=== PATIENT | male | born 1950 | race Caucasian/White ===

== ENCOUNTER 2017-05-25 13:21 | Inpatient (IN) | payer MEDICARE, BC ==
[2017-05-25 13:55] LABS: #Eosinphils 0.1 thou/uL (0.0-0.7); #Lymphocytes 1.5 thou/uL (1.20-3.40); #Monocytes 0.5 thou/uL (0.11-0.59); #Neutrophils 3.9 thou/uL (1.40-6.50); %Basophils 0.6 % (0.0-1.0); %Lymphocytes 24.9 % (21.0-51.0); %Monocytes 8.5 % (0.0-10.0); Hematocrit 47.4 % (42.0-52.0); Mean Platelet Volume 7.4 fL (7.4-10.4); Red Blood Cell (RBC) Count 4.98 mill/uL (4.70-6.10); White Blood Cell (WBC) Count 6.1 thou/uL (4.8-10.8)
[2017-05-25] MEDS ORDERED: Ondansetron HCl/PF 4 MG/2 ML Vial IVP PRN ×2 (14:00→16:58)
[2017-05-25] MEDS ORDERED: Ondansetron ODT 4 MG TAB SL PRN (14:00)
[2017-05-25 14:03] LABS: Prothrombin Time 13.3 SEC (12.0-14.7)
[2017-05-25 14:18] LABS: ALT (SGPT) 27 U/L (8-55); AST (SGOT) 26 U/L (5-34); Alkaline Phosphatase 66 U/L (40-150); Anion Gap 13 mmol/L (10-20); BUN (Urea Nitrogen) 14 mg/dL (8.4-25.7); Bilirubin, Total 0.4 mg/dL (0.2-1.2); CK (CPK) 91 U/L (30-200); Calc. Creatinine Clearance 0 mL/min (70-130); Calcium 9.7 mg/dL (7.8-10.44); Carbon Dioxide 27 mmol/L (23-31); Chloride 100 mmol/L (98-107); Estimated GFR-MDRD 44; Globulin 3.2 g/dL (2.4-3.5); Lipase 78 U/L (8-78)
[2017-05-25 14:22] LABS: Troponin I Less than 0.010 ng/mL (< 0.028)
--- NOTE | 2017-05-25 14:31 | RAD ---
PORTABLE CHEST: History: Chest pain. FINDINGS: Heart size is enlarged. Mediastinal structures appear unremarkable. The lungs are clear of infiltrat es. There are no signs of failure. IMPRESSION: Cardiomegaly. POS: [facility]
[2017-05-25 16:39] LABS: Prothrombin Time 14.3 SEC (12.0-14.7)
[2017-05-25 16:41] LABS: PTT 103.8 SEC (22.9-36.1)
[2017-05-25] MEDS ORDERED: Acetaminophen 325 MG TAB PO PRN (16:58)
[2017-05-25] MEDS ORDERED: Ondansetron ODT 4 MG TAB PO PRN (16:58)
[2017-05-25] MEDS ORDERED: Bisacodyl 5 MG TAB PO PRN (16:58)
[2017-05-25] MEDS ORDERED: Dextrose 5% in Water 1,000 ML IV PRN (16:58)
[2017-05-25] MEDS ORDERED: Dextrose 50% Abboject 50 ML SYRINGE SLOW IVP PRN (16:58)
--- NOTE | 2017-05-25 18:00 | HP ---
PRIMARY CARE PHYSICIAN: Dr. Jose Carlos Rand in [place]. CHIEF COMPLAINT: Blood clot in heart and left flank pain. HISTORY OF PRESENT ILLNESS: This is a 66-year-old white male with past medical history significant for diabetes mellitus controlled with oral hypoglycemics and coronary artery disease with previous s tent as well as Crohn's disease, who was visiting [place] a couple of weeks ago while he was there, he stopped his Invokana diabetes medication. While he was helping his son do some farming, he fell and hit his anterior chest fairly hard to where the next day, he thought he might have cracked rib and was very sore over the anterior left chest. The patient reports that about a week ago, he start ed feeling bad. He started feeling very dehydrated and he tried to drink a lot of water, but he did seem like he could not drink enough to stay well hydrated. He traveled back to [facility] over the weekend and then Wednesday when he woke up, he noted that he had left flank pain. Pain wa s fairly severe, although the intensity would come and go depending on which way he laid. He also h ad some nausea and vomiting and just generalized fatigue and feeling bad. He was concerned about th e possibly of recurrent Crohn's and so he first went to an Urgent Care, where he was noted to have a little bit of blood in his urine. He then followed up with Dr. Barajas, the sparmaker who or carlos a CT scan to make sure, he did not have diverticulitis or evidence of complication of Crohn's di sease. The patient was called by Dr. Barajas's office when they noted that the CT scan went up high en ough to note a large blood clot in the left ventricle of his heart. They also noted what appeared t o be a fairly large infarct in his left kidney. The patient was told to go to the emergency room, a nd so he came here to be evaluated. In the emergency room, Dr. Wu was consulted by the ER virii irena and the patient was given a heparin bolus and then put on the heparin drip. He does not have sig nificant amount of pain right now, unless he rolls the wrong way in the bed and he reports no other associated symptoms at this time. PAST MEDICAL HISTORY: 1. Hypertension. 2. Diabetes mellitus, noninsulin-dependent. 3. Coronary artery disease, status post stent. 4. Crohn's disease without flare for the past 2 years since he retired. 5. Right pelvic kidney. PAST SURGICAL HISTORY: 1. Right elbow fracture and surgical repair. 2. Rectal fistula repair. 3. Tonsillectomy. SOCIAL HISTORY: Patient lives with his . He does not smoke or use tobacco products. He does n ot do drugs. He drinks wine cooler about once every 2 weeks. He is retired. FAMILY HISTORY: Dad had hypertension and of a myocardial infarction at age 53. His mom w hen she was older of an unusual cancer of the blood vessels in her scalp. ALLERGIES: No known drug allergies. MEDICATIONS: The patient does not have current medications list with him and he is uncertain of the dosages. 1. Losartan once a day. 2. Metoprolol 2 times a day, very small dose. 3. Unknown blood pressure medication. 4. Glimepiride. 5. Invokana, which he stopped 2 weeks ago about the time he started feeling sick. 6. Januvia. 7. Aspirin 81 mg daily. REVIEW OF SYSTEMS: Constitutional: No fevers, no chills. He has had about a 5-pound weight loss o george the last week and a half. Eyes: No double vision or blurred vision. ENT: He does have some c hronic congestion and runny nose, but nothing does significantly different over the last couple of w eeks. No sore throat. Cardiovascular: See HPI. No current chest pain, no palpitations or racing heart. Pulmonary: No coughing, wheezing, or shortness of breath. Gastrointestinal: He has the fl ank pain as per HPI. No other abdominal pain, no nausea or vomiting currently. He did have some ea rlier the week. No diarrhea or constipation. Genitourinary: No dysuria or visible hematuria. Mus culoskeletal: No muscle aches or joint pains. Skin: No rashes or other lesions noted. Neurologic : No numbness, tingling, or focal weakness. PHYSICAL EXAMINATION: VITAL SIGNS: Blood pressure 156/93, pulse 70, respirations 17, O2 sat 97% on room air, temperature 97.9. GENERAL: This is a well-developed, obese white male in no apparent distress. HEENT: Pupils equal, round, and reactive to light. Extraocular movements intact. Oropharynx clear without lesions, erythema, or exudate. NECK: Supple, no lymphadenopathy, no thyroid nodules or enlargement, no JVD. HEART: Regular rate and rhythm. No murmurs, rubs, or gallops. LUNGS: Clear to auscultation bilaterally. No wheezes, crackles, or rhonchi. ABDOMEN: Soft. Mild tenderness to palpation in the left lower quadrant and in the left flank, but without guarding. No hepatosplenomegaly, no masses. Normoactive bowel sounds. EXTREMITIES: No clubbing, cyanosis, or edema. SKIN: No rashes or other lesions noted. NEUROLOGIC: Cranial nerves intact and equal bilaterally. No facial droop. Deep tendon reflexes 2+ in all extremities. His strength is 5/5 in all extremities. LABORATORY DATA: CBC within normal limits. Coagulation profile normal. Complete metabolic panel w as only notable for creatinine of 1.57, which is elevated above 1.45 that he had about 6 months ago. His glucose was also elevated at 341. Cardiac marker set negative x1. Brain natriuretic peptide is normal. EKG: The patient's EKG in the emergency room showed normal sinus rhythm at 65 beats per minute with no significant abnormalities. Chest x-ray: I do review the chest x-ray done in the emergency room along with the radiologist's re port, it shows a normal chest film without any acute cardiopulmonary process. CT scan was done at an outside facility, I do not have a formal report at this time. ASSESSMENT: 1. Left ventricular clot, uncertain etiology, although it may be related to poorly controlled diabe amparo leading to dehydration, also may be related to the chest trauma he had, although it sounds like it was fairly mild couple of weeks ago. The patient does have a cardiac history, so possibly he has had a sudden myocardial infarction or he is having some sort of congestive heart failure that led t o this. Echocardiogram has been done in the emergency room waiting for the results on that. Right now, his brain natriuretic peptide is normal. For now, we will put patient on the heparin drip. Dr Cheyenne Wu has been consulted for Cardiology. 2. Kidney infarct likely secondary to #1. I have talked to Dr. Moyer and he will evaluate the patien t. We will avoid nephrotoxic medications. We will hold patient's ARB for right now. 3. Hypertension, currently uncontrolled. We will resume patient's metoprolol 25 mg twice a day unt il we get his home medicine list and will give p.r.n. medicines for severe elevations. 4. Gastrointestinal prophylaxis. Put the patient on Pepcid twice a day. 5. Deep venous thrombosis prophylaxis. Patient is already on heparin and will put sequential compr ession devices and TEDs while in bed. 6. Code status: I did discuss with the patient, he is a FULL CODE. Should he be incapacitated, hi s Annita Avalos would be his medical decision maker. 7. Diabetes mellitus type 2. We will put patient on insulin sliding scale and we will resume diabe amparo medications, mostly final and give an accurate list.
[2017-05-25] MEDS: HumaLOG 300 UNITS/3 ML VIAL SC PRN ×2 (18:08→20:38)
[2017-05-25] MEDS: Sodium Chloride 0.9% 1,000 ML IV SCH ×2 (18:08→20:37)
[2017-05-25] MEDS ORDERED: FLU VACC TS2017-18 (>65YR) 0.5 ML SYRINGE IM ONE (18:15)
--- NOTE | 2017-05-25 19:02 | CON ---
DATE OF CONSULTATION: 05/25/2017 HISTORY OF PRESENT ILLNESS: Mr. Avalos is a 66-year-old white male who was admitted for a left kidney infarct. The patient was being evaluated by GI for abdominal pain. A CT scan of the abdomen showe d left infarct. During the initial workup, he had a cardiac echo which showed thrombus in the heart . The feeling is that the renal infarct may be embolic in phenomenon. We are now being consulted f or further management. REVIEW OF SYSTEMS: Positive for left abdominal pain. No nausea, no vomiting, no diarrhea, no const ipation, no syncopal episode, no headache, no diplopia, no hematochezia, no gross hematuria. No dys uria, no urinary frequency. No hemoptysis, no headache, no fever or chills. Appetite and energy le parveen is fair. MEDICATIONS: Currently the patient is on an IV heparin drip. HOME MEDICATIONS: Currently unavailable. PAST MEDICAL HISTORY: Crohn's disease, coronary artery disease, status post MO, Type 2 diabetes roslyn litus. PAST SURGICAL HISTORY: Status post cardiac catheterization, status post coronary stent placement, s tatus post colonoscopy, status post upper GI endoscopy, status post right elbow surgery. SOCIAL HISTORY: Originally from [place], but currently lives in [place] for the last 2 years, , 2 children, retired computer network and systems engineer. No history of smoking. No alcohol intake. No drug abus e. Denies any blood transfusion. FAMILY HISTORY: No family history of ESRD. ALLERGIES: None. TRAUMA: Status post right elbow fracture. IMMUNIZATIONS: Up to date. HOSPITALIZATIONS: Please see past medical history. PHYSICAL EXAMINATION: VITAL SIGNS: Blood pressure is 130/70, heart rate 60, respiratory rate 12. GENERAL: Awake, alert, comfortable, supine, obese, not in distress. SKIN: Adequate turgor. HEENT: He has pinkish conjunctivae, anicteric sclerae. NECK: No neck mass, no carotid bruits, no JVD. CHEST: No deformities. LUNGS: Clear breath sounds. No wheezing, no crackles. HEART: Normal sinus rhythm. No murmur, no gallops, no rubs. ABDOMEN: Globular, soft, nontender, no masses. Positive for bowel sounds. EXTREMITIES: No edema, no deformities. NEUROLOGIC: Moving all extremities. No tremors, no asterixis, no ataxia. LABORATORY: Of 05/25/2017, sodium 136, potassium 4.2, chloride 100, carbon dioxide 27, BUN 14, crea tinine 1.57, glucose 341, calcium 9.7, AST 26, ALT 27, albumin 3.8, lipase 78, troponin I 0.010. On 11/30/2016 BUN 19, creatinine 1.45. CT scan of the abdomen - verbal report, left renal infarct. On 05/25/2017, chest x-ray shows cardiomegaly, no evidence of CHF. On 05/25/2017, cardiac echo EF shows 50-55%. There is a 1 x 2 cm thrombus seen in the left ventricu lar apex adjacent to septum, this was said to be well circumscribed and nonmobile. ASSESSMENT AND PLAN: 1. Left renal infarct - with a history of cardiac thrombus, consider the possibility of an embolic phenomenon leading to his left renal infarct. I agree with intravenous anticoagulation with heparin . Thrombosis panel has also been ordered. We need to make sure that this patient is not hypercoagu lable. 2. Chronic renal failure - the patient has underlying diabetes. He may be having secondary diabeti c nephropathy. Sometimes an acute renal infarct can aggravate the renal function. The plan is simp ly to observe him. Volume repletion as needed. Recheck basic metabolic and complete blood count in a.m. Overall, I agree with current management.
[2017-05-25] MEDS: Metoprolol Tartrate 25 MG TAB PO SCH (20:35)
[2017-05-25] MEDS: Famotidine 20 MG TAB PO SCH (20:35)
[2017-05-25] MEDS: Docusate 100 MG CAP PO SCH (20:37)
[2017-05-26] MEDS: Heparin 10,000 UNITS/ 10 ML VIAL SLOW IVP SCH ×2 (00:14→08:07)
--- NOTE | 2017-05-26 01:32 | CON ---
DATE OF CONSULTATION: 05/25/2017 REASON FOR CONSULTATION: Incidentally noted left ventricular thrombus. PRIMARY PUBLIC SERVICE REPRESENTATIVE: Jamaal Yang M.D. REFERRING PHYSICIAN: Dr. Acevedo in the Emergency Department. HISTORY OF PRESENT ILLNESS: Mr. Avalos is a 66-year-old gentleman followed by Dr. Jamaal lugo. He established care with him back in December and was due for a followup appointment next month . He has known coronary artery disease and underwent percutaneous coronary intervention and stentin g of the LAD after a non-ST segment elevation NV back in 2014. He has been stable clinically and do ing fine with no cardiovascular symptoms. He was visiting his family in [place] and reports a shor t fall while helping his son fix a toilet in his home. He began having some left-sided flank pain t hat he thought was either a pulled muscle or injured rib from that fall and the pain continued to pe rsist, prompting evaluation in Urgent Care Center. The Urgent Care Center ordered a CT scan, which incidentally found the thrombus in the renal artery and further evaluation examining the heart showe d potential evidence of a left ventricular thrombus. He has had no chest pain symptoms. No palpitations, syncope, near syncope, claudication or other is sues suggestive of angina or decompensated congestive heart failure. He has had no change in his me dications or changes that would increase his propensity for coagulation. PAST MEDICAL HISTORY: 1. Coronary artery disease with history of PCI to the LAD in 2014. 2. Crohn's disease. 3. Dyslipidemia. 4. Hypertension. 5. Positive for type 2 diabetes mellitus. PAST SURGICAL HISTORY: 1. Percutaneous coronary intervention and stenting of the LAD in 2014. 2. Colonoscopy. 3. Right elbow surgery. 4. Rectal fistula surgery. 5. Tonsillectomy. ALLERGIES: No known drug allergies. SOCIAL HISTORY: He denies tobacco use, ethanol abuse, illicit or recreational drug use. FAMILY HISTORY: Negative with respect to premature atherosclerosis. CURRENT MEDICATIONS AT HOME: Include: 1. Metoprolol. 2. Lipitor. 3. Aspirin. 4. Cozaar. 5. Glimepiride. REVIEW OF SYSTEMS: Positive for left flank pain. Otherwise, negative with the exception of what is mentioned in the HPI. PHYSICAL EXAMINATION: VITAL SIGNS: Blood pressure is 132/68, pulse 68 and regular, respiratory rate 14 and nonlabored, te mperature 98.8, oxygen saturation 98% on room air. GENERAL: This is a well-developed, well-nourished 66-year-old gentleman in no acute distr ess. He is alert and oriented x4, answers questions appropriately. HEENT: Head is atraumatic, normocephalic. Pupils were equally round and reactive, sclerae and conj unctivae are clear. There are no oral lesions. NECK: Supple, no JVD, thyromegaly, carotid bruits. CHEST: Symmetrical inspiration and expiration. HEART: Regular rate and rhythm. No murmur, S3, S4. PMI is nondisplaced, not enlarged. LUNGS: Clear to auscultation in all curiel. No adventitious sounds appreciated. ABDOMEN: Soft, nontender, nondistended, without mass or organomegaly. Bowel sounds are present in all 4 quadrants. No flank bruits auscultated. EXTREMITIES: 2+ pulses noted bilaterally. Upper and lower extremity strength 5/5 bilaterally. The re is no clubbing, cyanosis or edema. NEUROLOGIC: Grossly intact with no focal motor deficits appreciated. DATABASE: EKG reveals sinus mechanism with nonspecific ST changes. LABORATORY DATA: CBC reveals a white count of 6, H and H of 15 and 47, platelet count 258,000. Dif ferential white blood cells normal. Red cell indices normocytic. Coagulation studies: PT and INR are normal. PTT 103 on heparin with a D-dimer of 1.09. Chemistries reveal normal electrolytes, BUN and creatinine 14 and 1.5. GFR is estimated at 44, glucose 341. LFTs are normal. Serial cardiac enzymes are normal. Homocystine is normal. Echo shows low normal LV function with ejection fraction of 50% to 55%. There is a well circumscrib ed stable appearing left ventricular thrombus in the apex of the left ventricle adjacent to the sept um, this is nonmobile and well circumscribed. ASSESSMENT: 1. Left renal arterial thrombus. 2. Left ventricular mural thrombus, new diagnosis. 3. Chronic kidney disease stage III. 4. Type 2 diabetes mellitus. 5. Coronary artery disease with history of percutaneous coronary intervention of the left anterior descending, stable. 6. Hypertension, controlled. 7. Dyslipidemia, on therapy. RECOMMENDATIONS: 1. From a cardiac standpoint, he is stable. There is no evidence of recent myocardial infarction, wall motion abnormality or recent myocardial injury that would explain the development of this throm bus. Hypercoagulability evaluation has been sent prior to initiation of anticoagulation therapy. W e will continue the IV heparin protocol using weight based protocol overnight with initiation of ora l therapy using Xarelto b.i.d. for the prescribed period of time followed by titration downward to d aily dosing thereafter. 2. He will be monitored in the IMCU for evidence of recurrent embolization as anticoagulation has b een initiated. Dr. Yang, his primary apple checker has been notified and he will assume care michael rogers. I appreciate the opportunity to participate. We will follow along.
[2017-05-26 05:20] LABS: #Eosinphils 0.2 thou/uL (0.0-0.7); #Lymphocytes 2.2 thou/uL (1.20-3.40); #Monocytes 0.6 thou/uL (0.11-0.59); #Neutrophils 2.8 thou/uL (1.40-6.50); %Basophils 0.6 % (0.0-1.0); %Eosinophils 3.6 % (0.0-10.0); %Lymphocytes 36.9 % (21.0-51.0); Hematocrit 43.9 % (42.0-52.0); Mean Platelet Volume 7.6 fL (7.4-10.4); Red Blood Cell (RBC) Count 4.59 mill/uL (4.70-6.10); White Blood Cell (WBC) Count 5.9 thou/uL (4.8-10.8)
[2017-05-26 05:35] LABS: Anion Gap 13 mmol/L (10-20); BUN (Urea Nitrogen) 13 mg/dL (8.4-25.7); Calc. Creatinine Clearance 82 mL/min (70-130); Calcium 8.7 mg/dL (7.8-10.44); Carbon Dioxide 22 mmol/L (23-31); Chloride 106 mmol/L (98-107); Estimated GFR-MDRD 61
[2017-05-26] MEDS: HumaLOG 300 UNITS/3 ML VIAL SC PRN ×3 (06:13→20:59)
[2017-05-26] MEDS ORDERED: Warfarin Sodium 5 MG TAB PO SCH (07:00)
[2017-05-26] MEDS: Metoprolol Tartrate 25 MG TAB PO SCH ×2 (07:46→20:55)
[2017-05-26] MEDS: Famotidine 20 MG TAB PO SCH ×2 (07:46→20:56)
[2017-05-26] MEDS: Docusate 100 MG CAP PO SCH ×2 (07:46→20:56)
--- NOTE | 2017-05-26 08:27 | PDOC.PN ---
- Subjective Encounter Start Date: 05/26/17 Encounter Start Time: 10:00 Subjective: No chest pain. Left flank pain almost gone. No other complaint. - Objective Resuscitation Status: Resuscitation Status FULL:Full Resuscitation MAR Reviewed: Yes Vital Signs & Weight: Vital Signs (12 hours) Temp Pulse Resp BP Pulse Ox 05/26/17 08:00 98.3 F 52 L 17 96 05/26/17 07:17 98.3 F 52 L 17 126/67 96 05/26/17 03:03 98.7 F 71 16 115/63 100 05/25/17 23:03 98.1 F 57 L 16 110/68 98 Weight Weight 211 lb 10.24 oz I&O: 05/25/17 05/26/17 05/27/17 06:59 06:59 06:59 Intake Total 1500 Output Total 1520 Balance -20 Result Diagrams: 05/26/17 03:52 05/26/17 03:52 Additional Labs: Accuchecks 05/26/17 05/25/17 05/25/17 05:13 20:06 17:59 POC Glucose 205 H 212 H 247 H Phys Exam - Physical Examination Constitutional: NAD HEENT: moist MMs Respiratory: no wheezing, no rales, no rhonchi Cardiovascular: RRR, no significant murmur Gastrointestinal: soft, positive bowel sounds Musculoskeletal: no edema Neurological: non-focal, moves all 4 limbs Psychiatric: normal affect, A&O x 3 Dx/Plan (1) Left ventricular thrombus Code(s): XVT5872 - Status: Acute (2) Renal infarct Code(s): N28.0 - ISCHEMIA AND INFARCTION OF KIDNEY Status: Acute Comment: creatinine normalized with IV fluids and heparin (3) Diabetes mellitus type 2 in obese Code(s): E11.69 - TYPE 2 DIABETES MELLITUS WITH OTHER SPECIFIED COMPLICATION; E66.9 - OBESITY, UNSPECIFIED Status: Chronic (4) Hypertension Code(s): I10 - ESSENTIAL (PRIMARY) HYPERTENSION Status: Chronic - Plan cont current plan of care, out of bed/ambulate, DVT proph w/heparin transition to oral anticoagulants- Coumadin due to ability to reverse -: and cost. * . - Discharge Day Encounter end time: 10:30
--- NOTE | 2017-05-26 10:21 | PRG ---
DATE OF SERVICE: 05/26/2017 SUBJECTIVE: Mr. Avalos is a 68-year-old white male who was seen for left renal infarct. He was having flank pain for the last several weeks. CT scan of the abdomen was done by his therapeutic mentor an raad an incidental finding of a left renal infarct was done. He was admitted for IV anticoagulation. Chidi miranda is currently on IV heparin. An anti-thrombosis panel has also been ordered. His renal function, h is last creatinine was noted at 1.59. His medications have been adjusted. In addition, he was start ed on gentle volume repletion. Creatinine is now much improved to a most recent value of about 1.1. The patient denies any chest pain, shortness of breath. PHYSICAL EXAMINATION: VITAL SIGNS: Blood pressure is 126/67, heart rate 60, respiratory rate 12, pulse ox 95%. GENERAL: Noted to be awake, supine, comfortable, not in distress. SKIN: Adequate turgor. HEENT: Pinkish conjunctivae, anicteric sclerae. NECK: No neck mass, no carotid bruits, no JVD. CHEST: No deformities. LUNGS: Clear breath sounds. No wheezing, no crackles. HEART: Normal sinus rhythm. No murmur, no gallops or rubs. ABDOMEN: Globular, soft, nontender, no masses. EXTREMITIES: No edema, no deformities. MEDICATIONS: 05/26/2017 - Reviewed. LABORATORIES: 05/26/2017 - Reviewed. ASSESSMENT AND PLAN: 1. Acute kidney injury on top of his chronic renal failure ? - improved creatinine with gentle volum e repletion. Continue current management. There is no indication for any dialytic intervention. 2. Left renal infarct - most likely embolic phenomenon. An anti-thrombosis panel has been ordered. We are awaiting for the results. I agree with IV heparin. The patient will be converted to Coumadi n. Overall, I agree with current management. Case discussed at length with the patient and his .
--- NOTE | 2017-05-26 10:21 | CON ---
DATE OF CONSULTATION: 05/26/2017 HISTORY: Mr. Avalos is a 66-year-old gentleman who is from the [place] area, he sees Dr. Barajas and Dr. Yang over here. He has an unusual history of 2 weeks ago he was in [place], developed some flan k pain, abdominal pain, probably in regards to his Crohn's disease. He went to see his GI who ordere d a CAT scan thinking it might be diverticulitis. The CT unfortunately showed he had evidence of a v entricular clot. He was told to come in the hospital. Echocardiogram was done yesterday, shows a 2 centimeter thrombu s in the left ventricular apex adjacent to the septum. Ejection fraction was normal. He denies any coughing or wheezing. He denied any shortness of breath. He is a nonsmoker. No history of TB, pneu monia or bronchial asthma. PAST MEDICAL HISTORY: Otherwise pertinent for coronary artery disease status post stent in 2014, his tory of Crohn's disease, hypertension, diabetes. PAST SURGICAL HISTORY: Stent in 2015, colonoscopy, elbow, rectal, tonsils. HOME MEDICATIONS: Metoprolol 25 twice a day, losartan 1 a day, Invokana 1 tablet, atorvastatin, Amar yl, aspirin, Protonix. ALLERGIES: None. SOCIAL/FAMILY HISTORY: Unremarkable. PHYSICAL EXAMINATION: VITAL SIGNS: Blood pressure 120/67, sats 96% on room air, pulse 58, temperature 98. CHEST: No crackles, rales or wheezing. CARDIAC: Normal S1, S2. ABDOMEN: Soft, no masses. LABORATORY: White count 5,000, H&H 14 and 43, platelet count 228, electrolytes are normal. Creatini ne is 1.3. IMPRESSION: 1. Left ventricular thrombus, felt to be secondary to his previous stent. 2. Left renal infarct. 3. Diabetes. 4. Crohn's disease. PLAN: Ultrasound of his legs has been ordered. A thrombosis profile has already been ordered. I will follow while in the [facility].
--- NOTE | 2017-05-26 10:22 | ULT ---
ULTRASOUND WITH DOPPLER DUPLEX VENOUS LOWER EXTREMITY BILATERAL CPT: 99336 ICD-10-PCS: [id number] HISTORY: Cardiac thrombus, DVT. TECHNIQUE: Color flow Doppler, spectral waveform analysis of pulsed Doppler, and delaney-scale imaging with quang jr and augmentation, were used to evaluate the bilateral common femoral, femoral, popliteal, jewel bearing facer ior tibial, and superficial femoral, veins; and the proximal portions of the profunda femoral and gre ater saphenous, veins. FINDINGS: There is appropriate compressibility and flow within the imaged deep venous system of each lower extr emity. IMPRESSION: No DVT. POS: [facility]
[2017-05-26] MEDS: Heparin 25,000 units/D5W 500 ML IV SCH (14:22)
[2017-05-26] MEDS: Warfarin Sodium 5 MG TAB PO SCH (17:00)
[2017-05-27 04:08] LABS: #Basophils 0.1 thou/uL (0.0-0.2); #Eosinphils 0.2 thou/uL (0.0-0.7); #Lymphocytes 2.2 thou/uL (1.20-3.40); #Monocytes 0.7 thou/uL (0.11-0.59); %Basophils 0.7 % (0.0-1.0); %Eosinophils 2.9 % (0.0-10.0); %Lymphocytes 30.1 % (21.0-51.0); %Monocytes 10.2 % (0.0-10.0); Hematocrit 43.1 % (42.0-52.0); Mean Platelet Volume 7.1 fL (7.4-10.4); White Blood Cell (WBC) Count 7.2 thou/uL (4.8-10.8)
[2017-05-27 04:15] LABS: Prothrombin Time 14.2 SEC (12.0-14.7)
[2017-05-27 04:20] LABS: Anion Gap 10 mmol/L (10-20); BUN (Urea Nitrogen) 14 mg/dL (8.4-25.7); Calc. Creatinine Clearance 75 mL/min (70-130); Calcium 9.1 mg/dL (7.8-10.44); Carbon Dioxide 24 mmol/L (23-31); Chloride 105 mmol/L (98-107); Estimated GFR-MDRD 55
[2017-05-27] MEDS: HumaLOG 300 UNITS/3 ML VIAL SC PRN ×2 (06:17→21:46)
--- NOTE | 2017-05-27 08:33 | PRG ---
DATE OF SERVICE: 05/27/2017 SUBJECTIVE: This morning he is awake, alert, responsive. Ultrasound negative. No shortness of sj th. PHYSICAL EXAMINATION: VITAL SIGNS: Blood pressure 120/72, O2 sats 96, temperature 98. CHEST: Chest reveals decreased breath sounds, no wheezing. CARDIAC: Normal S1, S2. ABDOMEN: Soft, no masses. LABORATORY DATA: White count 10,000, H&H 14 and 43, platelet count normal. Electrolytes are normal. Creatinine 1.3. IMPRESSION: 1. Ventricular clot. 2. Renal failure. 3. Deep venous thrombosis. PLAN: Continue Coumadin as per Cardiology. I will follow at a distance.
[2017-05-27] MEDS: Metoprolol Tartrate 25 MG TAB PO SCH ×2 (09:26→21:45)
[2017-05-27] MEDS: Famotidine 20 MG TAB PO SCH ×2 (09:26→21:45)
[2017-05-27] MEDS: Docusate 100 MG CAP PO SCH ×2 (09:27→21:45)
[2017-05-27] MEDS: Heparin 25,000 units/D5W 500 ML IV SCH (09:28)
--- NOTE | 2017-05-27 10:10 | PRG ---
DATE OF SERVICE: 05/27/2017 SUBJECTIVE: Mr. 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 He did have a thrombus on his heart on initial evaluation. Renal function has been relatively stable. His medications at home included the use of losartan. We are currently holding off the losartan at t he present time. The patient is asymptomatic. Cardiology has evaluated this patient. He is now on a crossover for hi s anticoagulation and is on Coumadin. Awaiting for therapeutic INRs. Please note the patient had an anti-thrombolytic panel that was ordered and the results are currently pending. The patient voices no new complaints. He denies any chest pain, shortness of breath. PHYSICAL EXAMINATION: VITAL SIGNS: Blood pressure 112/72, heart rate 53, respiratory rate 14, temperature 98.3. GENERAL: Noted to be awake, alert, supine, comfortable, not in distress. SKIN: Adequate turgor. HEENT: Pinkish conjunctivae, anicteric sclerae. NECK: No neck mass, no carotid bruits, no JVD. CHEST: No deformities. LUNGS: Clear breath sounds. No wheezing, no crackles. HEART: Normal sinus rhythm. No murmur, no gallops or rubs. ABDOMEN: Globular, soft, nontender, no masses. EXTREMITIES: No edema. MEDICATIONS: 05/27/2017 - Reviewed. LABORATORY: 05/27/2017 - Sodium 135, potassium 4.1, chloride 105, carbon dioxide 24, BUN 14, creatin ine 1.3, GFR 55 mL per minute, glucose 212, calcium 9.1. White count 7.2, hemoglobin 14.5. ASSESSMENT AND PLAN: 1. 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 Awaiting resu lts of anti-thrombotic panel. 2. Cardiac thrombus. Cardiology following on anticoagulation. 3. Chronic renal failure - ? is whether this patient may have underlying intrinsic renal problems. Please note he is a diabetic. He may have underlying diabetic nephropathy. We will review a urinaly sis to see if there is any proteinuria. For the moment, agree with current management. Recheck basic metabolic panel in a.m.
[2017-05-27 13:09] LABS: Protein C Activity 90 % (78-152)
--- NOTE | 2017-05-27 14:46 | PDOC.PN ---
- Subjective Encounter Start Date: 05/27/17 Encounter Start Time: 09:00 Pt seen for followup re: LV thrombus. Denies chest pain, shortness of breath, fevers or chills. No flank pain. - Objective Resuscitation Status: Resuscitation Status FULL:Full Resuscitation MAR Reviewed: Yes Vital Signs & Weight: Vital Signs (12 hours) Temp Pulse Resp BP Pulse Ox 05/27/17 11:27 98.1 F 58 L 16 108/68 100 05/27/17 07:41 98.3 F 53 L 14 97 05/27/17 07:22 98.3 F 53 L 14 112/72 96 05/27/17 03:09 97.8 F 48 L 16 112/57 L 97 Weight Admit Weight 211 lb 10.3 oz Weight 208 lb 9.6 oz I&O: 05/26/17 05/27/17 05/28/17 06:59 06:59 06:59 Intake Total 1500 1910 Output Total 1520 880 Balance -20 1030 Result Diagrams: 05/27/17 03:58 05/27/17 03:57 Additional Labs: Accuchecks 05/27/17 05/27/17 05/26/17 11:25 05:05 20:29 POC Glucose 212 H 239 H 219 H 05/26/17 15:34 POC Glucose 268 H EKG Reviewed by me: Yes (Tele: sinus bradycardia) Phys Exam - Physical Examination Constitutional: NAD HEENT: moist MMs Neck: supple Respiratory: clear to auscultation bilateral Cardiovascular: RRR Gastrointestinal: soft, non-tender, positive bowel sounds Musculoskeletal: pulses present Neurological: moves all 4 limbs Psychiatric: normal affect Skin: no rash Dx/Plan (1) Left ventricular thrombus Code(s): [id number] - Status: Acute (2) Renal infarct Code(s): N28.0 - ISCHEMIA AND INFARCTION OF KIDNEY Status: Acute Comment: creatinine normalized with IV fluids and heparin (3) Diabetes mellitus type 2 in obese Code(s): E11.69 - TYPE 2 DIABETES MELLITUS WITH OTHER SPECIFIED COMPLICATION; E66.9 - OBESITY, UNSPECIFIED Status: Chronic (4) Hypertension Code(s): I10 - ESSENTIAL (PRIMARY) HYPERTENSION Status: Chronic - Plan PT/OT, out of bed/ambulate * . Continue warfarin (heparin bridge), INR still subtherapeutic. Ambulate pt. Review of Systems - Review of Systems Constitutional: negative: Fever, Chills, Sweats, Weakness, Malaise Respiratory: negative: Cough, Dry, Shortness of Breath, Hemoptysis, SOB with Excertion, Pleuritic Pain, Sputum, Wheezing Cardiovascular: negative: Chest Pain, Palpitations, Orthopnea, Paroxysmal Noc. Dyspnea, Edema, Light Headedness - Medications/Allergies Allergies/Adverse Reactions: Allergies Allergy/AdvReac Type Severity Reaction Status Date / Time No Known Allergies Allergy Verified 05/25/17 17:24 Medications: Current Medications Acetaminophen (Tylenol) 650 mg PO Q4H PRN PRN Reason: Headache/Fever or Pain Aspirin (Aspirin Chewable) 81 mg PO DAILY [facility] Last Admin: 05/27/17 09:26 Dose: 81 mg Bisacodyl (Dulcolax) 10 mg PO DAILYPRN PRN PRN Reason: Constipation Dextrose/Water (Dextrose 50%) 25 gm SLOW IVP PRN PRN PRN Reason: Hypoglycemia Docusate Sodium (Colace) 100 mg PO BID [facility] Last Admin: 05/27/17 09:27 Dose: Not Given Famotidine (Pepcid) 20 mg PO BID [facility] Last Admin: 05/27/17 09:26 Dose: 20 mg Glucagon (Glucagon) 1 mg IM PRN PRN PRN Reason: Hypoglycemia Heparin Sodium (Porcine) (Heparin 1,000 Units/Ml (10 Ml)) 0 units SLOW IVP [facility] Last Admin: 05/26/17 08:07 Dose: 2,868 unit Heparin Sodium/Dextrose (Heparin 25,000 Units/D5w 500 Ml) 500 mls @ 0 mls/hr IV INF [facility]; As Directed PRN Reason: Protocol Last Admin: 05/27/17 09:28 Dose: 500 mls Dextrose/Water (D5w) 1,000 mls @ 0 mls/hr IV .Q0M PRN; As Directed PRN Reason: Hypoglycemia Insulin Human Lispro (Humalog) 0 units SC .MILD SLIDING SCALE PRN PRN Reason: Mild Correctional Scale Last Admin: 05/27/17 06:17 Dose: 4 unit Metoprolol Tartrate (Lopressor) 25 mg PO BID [facility] Last Admin: 05/27/17 09:26 Dose: 25 mg Ondansetron HCl (Zofran Odt) 4 mg PO Q6H PRN PRN Reason: Nausea/Vomiting Ondansetron HCl (Zofran) 4 mg IVP Q6H PRN PRN Reason: Nausea/Vomiting Sodium Chloride (Flush - Normal Saline) 10 ml IVF Q12HR [facility] Last Admin: 05/27/17 09:27 Dose: Not Given Sodium Chloride (Flush - Normal Saline) 10 ml IVF PRN PRN PRN Reason: Saline Flush Warfarin Sodium (Coumadin) 5 mg PO 1700 [facility] Last Admin: 05/26/17 17:00 Dose: 5 mg
[2017-05-27] MEDS: Warfarin Sodium 5 MG TAB PO SCH (15:25)
[2017-05-27 15:32] LABS: Bacteria/HPF None Seen HPF (None Seen); Hyaline Casts/LPF 0-3 HYALINE CAST LPF (0-3 Hyaline); RBC/HPF 0-3 HPF (0-3); Squamous Epithelial None Seen HPF (0-3); WBC/HPF None Seen HPF (0-3)
[2017-05-27 15:33] LABS: Bilirubin Negative (Negative); Blood, Urine Small (Negative); Glucose, Urine (Dipstick) >=1000 mg/dL (Negative); Ketone, Urine Negative (Negative); Nitrite Negative (Negative); Protein, Urine (Dipstick) Negative (Neg-Trace); Urobilinogen 0.2 mg/dL (0.2-1.0)
[2017-05-28 04:52] LABS: Prothrombin Time 15.7 SEC (12.0-14.7)
[2017-05-28 05:00] LABS: Anion Gap 11 mmol/L (10-20); BUN (Urea Nitrogen) 17 mg/dL (8.4-25.7); Calc. Creatinine Clearance 54 mL/min (70-130); Carbon Dioxide 28 mmol/L (23-31); Chloride 102 mmol/L (98-107); Estimated GFR-MDRD 39
[2017-05-28] MEDS: Heparin 25,000 units/D5W 500 ML IV SCH ×2 (05:09→22:21)
[2017-05-28] MEDS: HumaLOG 300 UNITS/3 ML VIAL SC PRN ×4 (06:18→20:57)
[2017-05-28] MEDS: Famotidine 20 MG TAB PO SCH ×2 (08:42→20:56)
[2017-05-28] MEDS: Sodium Chloride 0.9% 1,000 ML IV SCH ×2 (08:42→17:50)
[2017-05-28] MEDS: Metoprolol Tartrate 25 MG TAB PO SCH ×2 (08:43→20:56)
[2017-05-28] MEDS: Docusate 100 MG CAP PO SCH ×2 (08:43→20:56)
--- NOTE | 2017-05-28 15:24 | PDOC.PN ---
- Subjective Encounter Start Date: 05/28/17 Encounter Start Time: 09:00 Pt seen for followup re: LV thrombus. Denies chest pain, nausea, vomiting or chills. - Objective Resuscitation Status: Resuscitation Status FULL:Full Resuscitation MAR Reviewed: Yes Vital Signs & Weight: Vital Signs (12 hours) Temp Pulse Resp BP Pulse Ox 05/28/17 11:45 97.6 F 52 L 22 H 100/73 99 05/28/17 08:00 98.2 F 54 L 16 98 05/28/17 07:51 98.2 F 54 L 16 108/48 L 98 05/28/17 03:48 98.3 F 50 L 16 103/57 L 99 Weight Admit Weight 211 lb 10.3 oz Weight 208 lb 9.6 oz I&O: 05/27/17 05/28/17 05/29/17 06:59 06:59 06:59 Intake Total 1910 810 480 Output Total 880 1030 Balance 1030 -220 480 Result Diagrams: 05/27/17 03:58 05/28/17 04:07 Additional Labs: Accuchecks 05/28/17 05/28/17 05/27/17 11:07 05:32 21:00 POC Glucose 284 H 241 H 264 H 05/27/17 15:44 POC Glucose 258 H EKG Reviewed by me: Yes (Tele: NSR) Phys Exam - Physical Examination Constitutional: NAD HEENT: moist MMs Neck: supple Respiratory: clear to auscultation bilateral Cardiovascular: RRR Gastrointestinal: soft Musculoskeletal: pulses present Neurological: moves all 4 limbs Psychiatric: normal affect Skin: no rash Dx/Plan (1) Left ventricular thrombus Code(s): [id number] - Status: Acute (2) Renal infarct Code(s): N28.0 - ISCHEMIA AND INFARCTION OF KIDNEY Status: Acute Comment: creatinine normalized with IV fluids and heparin (3) Diabetes mellitus type 2 in obese Code(s): E11.69 - TYPE 2 DIABETES MELLITUS WITH OTHER SPECIFIED COMPLICATION; E66.9 - OBESITY, UNSPECIFIED Status: Chronic (4) Hypertension Code(s): I10 - ESSENTIAL (PRIMARY) HYPERTENSION Status: Chronic - Plan PT/OT, out of bed/ambulate * . INR 1.2, continue anticoagulation with warfarin until INR is therapeutic ( heparin). Will request pharmacy to dose warfarin. Continue insulin sliding scale, accuchecks. Monitor vital signs, titrate antihypertensives as needed. Review of Systems - Review of Systems Respiratory: negative: Cough, Dry, Shortness of Breath, Hemoptysis, SOB with Excertion, Pleuritic Pain, Sputum, Wheezing Cardiovascular: negative: Chest Pain, Palpitations, Orthopnea, Paroxysmal Noc. Dyspnea, Edema, Light Headedness - Medications/Allergies Allergies/Adverse Reactions: Allergies Allergy/AdvReac Type Severity Reaction Status Date / Time No Known Allergies Allergy Verified 05/25/17 17:24 Medications: Current Medications Acetaminophen (Tylenol) 650 mg PO Q4H PRN PRN Reason: Headache/Fever or Pain Aspirin (Aspirin Chewable) 81 mg PO DAILY [facility] Last Admin: 05/28/17 08:43 Dose: 81 mg Bisacodyl (Dulcolax) 10 mg PO DAILYPRN PRN PRN Reason: Constipation Dextrose/Water (Dextrose 50%) 25 gm SLOW IVP PRN PRN PRN Reason: Hypoglycemia Docusate Sodium (Colace) 100 mg PO BID [facility] Last Admin: 05/28/17 08:43 Dose: Not Given Famotidine (Pepcid) 20 mg PO BID [facility] Last Admin: 05/28/17 08:42 Dose: 20 mg Glucagon (Glucagon) 1 mg IM PRN PRN PRN Reason: Hypoglycemia Heparin Sodium (Porcine) (Heparin 1,000 Units/Ml (10 Ml)) 0 units SLOW IVP [facility] Last Admin: 05/26/17 08:07 Dose: 2,868 unit Heparin Sodium/Dextrose (Heparin 25,000 Units/D5w 500 Ml) 500 mls @ 0 mls/hr IV INF [facility]; As Directed PRN Reason: Protocol Last Admin: 05/28/17 05:09 Dose: 500 mls Dextrose/Water (D5w) 1,000 mls @ 0 mls/hr IV .Q0M PRN; As Directed PRN Reason: Hypoglycemia Sodium Chloride (Normal Saline 0.9%) 1,000 mls @ 100 mls/hr IV .Q10H [facility] Last Admin: 05/28/17 08:42 Dose: 1,000 mls Insulin Human Lispro (Humalog) 0 units SC .MILD SLIDING SCALE PRN PRN Reason: Mild Correctional Scale Last Admin: 05/28/17 12:05 Dose: 6 unit Metoprolol Tartrate (Lopressor) 25 mg PO BID [facility] Last Admin: 05/28/17 08:43 Dose: 25 mg Ondansetron HCl (Zofran Odt) 4 mg PO Q6H PRN PRN Reason: Nausea/Vomiting Ondansetron HCl (Zofran) 4 mg IVP Q6H PRN PRN Reason: Nausea/Vomiting Sodium Chloride (Flush - Normal Saline) 10 ml IVF Q12HR [facility] Last Admin: 05/28/17 08:43 Dose: Not Given Sodium Chloride (Flush - Normal Saline) 10 ml IVF PRN PRN PRN Reason: Saline Flush Warfarin Sodium (Coumadin) 5 mg PO 1700 [facility] Last Admin: 05/27/17 15:25 Dose: 5 mg
[2017-05-28] MEDS ORDERED: Pharmacy to MANAGE WARFARIN PO PRN (15:55)
--- NOTE | 2017-05-28 16:10 | PRG ---
DATE OF SERVICE: 05/28/2017 SUBJECTIVE: This is a 66-year-old white male seen for left renal infarct secondary to an embolic phenomenon. He is on anticoagulation. However, his creatinine this morning was noted at 1.7. He is not taking any nephrotoxic drugs. His p.o. intake seems to be adequate. OBJECTIVE: VITAL SIGNS: Blood pressure is 100/73, heart rate 52, respiratory rate 22, temperature 97.6, pulse ox 99%. GENERAL: Awake, alert, comfortable, not in distress. SKIN: Adequate turgor. HEENT: He has pinkish conjunctivae, anicteric sclerae. NECK: No neck mass, no carotid bruits, no JVD. CHEST: No deformities. LUNGS: Clear breath sounds. HEART: Normal sinus rhythm. No murmur, no gallops or rubs. ABDOMEN: Globular, soft, nontender. No masses. EXTREMITIES: No edema, no deformities. LABORATORY: On 05/28/2017, sodium 137, potassium 4.4, chloride 102, carbon dioxide 28, BUN 17, creatinine 1.77, glucose 229, calcium 9.0. On 05/27/2017, urinalysis negative for protein. ASSESSMENT AND PLAN: 1. Acute kidney injury - High creatinine today at 1.77. We will start the patient on normal saline at 100 mL per hour. Review of the urinalysis did not show any evidence of pigmented granular cast to suggest acute tubular necrosis. He most likely has a pre-renal component. 2. Left renal infarct, continue anticoagulation. Previous anti-thrombotic panel has been ordered and the results are still currently pending. Overall, agree with current management. Patient is being anticoagulated with Coumadin and heparin. [facility]
[2017-05-28] MEDS: Warfarin Sodium 5 MG TAB PO SCH (17:47)
[2017-05-29] MEDS: Sodium Chloride 0.9% 1,000 ML IV SCH ×2 (04:06→14:15)
[2017-05-29 04:20] LABS: Prothrombin Time 17.4 SEC (12.0-14.7)
[2017-05-29 04:21] LABS: PTT 82.8 SEC (22.9-36.1)
[2017-05-29] MEDS: HumaLOG 300 UNITS/3 ML VIAL SC PRN ×4 (05:39→18:01)
[2017-05-29] MEDS ORDERED: Warfarin Sodium 5 MG TAB PO SCH (08:00)
[2017-05-29] MEDS: Metoprolol Tartrate 25 MG TAB PO SCH ×2 (08:47→21:21)
[2017-05-29] MEDS: Famotidine 20 MG TAB PO SCH ×2 (08:47→21:20)
[2017-05-29] MEDS: Docusate 100 MG CAP PO SCH ×2 (08:48→21:21)
--- NOTE | 2017-05-29 09:44 | PRG ---
DATE OF SERVICE: 05/29/2017 SUBJECTIVE: Mr. Avalos is doing well. He is awake and alert. No complaints. No chest pain or pressu re. PHYSICAL EXAMINATION: VITAL SIGNS: Blood pressure 135/71, pulse is 56 and regular. LUNGS: Clear. CARDIAC: Normal S1, normal S2. ABDOMEN: Soft, nontender. EXTREMITIES: No edema. LABORATORY DATA: INR is still subtherapeutic at 1.4. PTT is therapeutic 2.8, on heparin. ASSESSMENT: 1. 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 2. On Coumadin, still subtherapeutic. 3. History of left ventricular thrombus. 4. Left renal artery thrombus. 5. Coronary artery disease, stable. PLAN: 1. Give him an extra dose of Coumadin 5 mg. 2. Continue to monitor. 3. The plan is to keep him in the hospital until the INR is therapeutic.
[2017-05-29 10:19] LABS: Anion Gap 11 mmol/L (10-20); BUN (Urea Nitrogen) 15 mg/dL (8.4-25.7); Calc. Creatinine Clearance 65 mL/min (70-130); Calcium 9.4 mg/dL (7.8-10.44); Carbon Dioxide 26 mmol/L (23-31); Chloride 103 mmol/L (98-107); Estimated GFR-MDRD 47
--- NOTE | 2017-05-29 10:30 | PRG ---
DATE OF SERVICE: 05/29/2017 SUBJECTIVE: Mr. Avalos is a 66-year-old white male seen for left renal infarct secondary to an embolic phenomena. Patient currently on anticoagulation. I note that his creatinine yesterday was elevated at 1.7. He was given empiric volume repletion. We are waiting for replacement. No new complaints today. He denies any chest pain or shortness of breath. PHYSICAL EXAMINATION: VITAL SIGNS: Blood pressure 115/56, heart rate 58, respiratory rate 18, temperature 98.7, pulse ox i s 98%. GENERAL: Noted to be awake, alert, comfortable, not in distress. SKIN: Adequate turgor. HEENT: Pinkish conjunctivae, anicteric sclerae. NECK: No neck mass, no carotid bruits, no JVD. CHEST: No deformities. LUNGS: Clear breath sounds. No wheezing, no crackles. HEART: Normal sinus rhythm. No murmur, no gallops or rubs. ABDOMEN: Globular, soft, nontender, no masses. EXTREMITIES: No edema, no deformities. MEDICATIONS: 05/29/2017 reviewed. LABORATORY DATA: 1. 05/28/2017, BUN 17, creatinine 1.77 and 05/29/2017, glucose 211. 2. Base met 05/29/2017 pending. 3. Cardiolipin antibody pending. Antithrombotic panel is still pending. INR is currently 1.4. ASSESSMENT AND PLAN: 1. Left renal infarct and currently on IV heparin and Coumadin. Waiting for the Coumadin to reach t herapeutic levels. Continue current management. 2. Acute kidney injury - consider superimposed prerenal azotemia. Continue normal saline 100 mL per hour. We will again recheck a basic met tomorrow. Still awaiting today's base met.
--- NOTE | 2017-05-29 14:21 | PDOC.PN ---
- Subjective Encounter Start Date: 05/29/17 Encounter Start Time: 10:00 Pt seen for followup re: LV thrombus. Fells well, no nausea, vomiting or chest pain. - Objective Resuscitation Status: Resuscitation Status FULL:Full Resuscitation MAR Reviewed: Yes Vital Signs & Weight: Vital Signs (12 hours) Temp Pulse Resp BP Pulse Ox 05/29/17 11:03 98.1 F 54 L 20 119/67 97 05/29/17 08:00 98.7 F 58 L 18 98 05/29/17 07:19 98.7 F 58 L 18 115/56 L 98 05/29/17 04:00 97.8 F 56 L 20 135/71 98 Weight Admit Weight 211 lb 10.3 oz Weight 208 lb 9.6 oz I&O: 05/28/17 05/29/17 05/30/17 06:59 06:59 06:59 Intake Total 810 2650 Output Total 1030 1950 350 Balance -220 700 -350 Result Diagrams: 05/27/17 03:58 05/29/17 09:49 Additional Labs: Accuchecks 05/29/17 05/29/17 05/28/17 10:54 05:39 20:38 POC Glucose 170 H 211 H 281 H 05/28/17 16:37 POC Glucose 179 H EKG Reviewed by me: Yes (Tele: NSR) Phys Exam - Physical Examination Constitutional: NAD HEENT: moist MMs, oral pharynx no lesions Neck: supple Respiratory: clear to auscultation bilateral Cardiovascular: RRR Gastrointestinal: soft, non-tender Musculoskeletal: pulses present Neurological: moves all 4 limbs Lymphatic: no nodes Psychiatric: normal affect, A&O x 3 Skin: no rash Dx/Plan (1) Left ventricular thrombus Code(s): [id number] - Status: Acute (2) Renal infarct Code(s): N28.0 - ISCHEMIA AND INFARCTION OF KIDNEY Status: Acute Comment: creatinine normalized with IV fluids and heparin (3) Diabetes mellitus type 2 in obese Code(s): E11.69 - TYPE 2 DIABETES MELLITUS WITH OTHER SPECIFIED COMPLICATION; E66.9 - OBESITY, UNSPECIFIED Status: Chronic (4) Hypertension Code(s): I10 - ESSENTIAL (PRIMARY) HYPERTENSION Status: Chronic - Plan out of bed/ambulate * . INR still subtherapeutic, continue warfarin with heparin bridge. Continue insulin sliding scale and acuchecks. Ambulate patient. Review of Systems - Review of Systems Constitutional: negative: Fever, Chills, Sweats, Weakness, Malaise Respiratory: negative: Cough, Dry, Shortness of Breath, Hemoptysis, SOB with Excertion, Pleuritic Pain, Sputum, Wheezing Gastrointestinal: negative: Nausea, Vomiting, Abdominal Pain, Diarrhea, Constipation, Melena, Hematochezia - Medications/Allergies Allergies/Adverse Reactions: Allergies Allergy/AdvReac Type Severity Reaction Status Date / Time No Known Allergies Allergy Verified 05/25/17 17:24 Medications: Current Medications Acetaminophen (Tylenol) 650 mg PO Q4H PRN PRN Reason: Headache/Fever or Pain Aspirin (Aspirin Chewable) 81 mg PO DAILY [facility] Last Admin: 05/29/17 08:47 Dose: 81 mg Bisacodyl (Dulcolax) 10 mg PO DAILYPRN PRN PRN Reason: Constipation Dextrose/Water (Dextrose 50%) 25 gm SLOW IVP PRN PRN PRN Reason: Hypoglycemia Docusate Sodium (Colace) 100 mg PO BID [facility] Last Admin: 05/29/17 08:48 Dose: Not Given Famotidine (Pepcid) 20 mg PO BID [facility] Last Admin: 05/29/17 08:47 Dose: 20 mg Glucagon (Glucagon) 1 mg IM PRN PRN PRN Reason: Hypoglycemia Heparin Sodium (Porcine) (Heparin 1,000 Units/Ml (10 Ml)) 0 units SLOW IVP [facility] Last Admin: 05/26/17 08:07 Dose: 2,868 unit Heparin Sodium/Dextrose (Heparin 25,000 Units/D5w 500 Ml) 500 mls @ 0 mls/hr IV INF [facility]; As Directed PRN Reason: Protocol Last Admin: 05/28/17 22:21 Dose: 500 mls Dextrose/Water (D5w) 1,000 mls @ 0 mls/hr IV .Q0M PRN; As Directed PRN Reason: Hypoglycemia Sodium Chloride (Normal Saline 0.9%) 1,000 mls @ 100 mls/hr IV .Q10H [facility] Last Admin: 05/29/17 14:15 Dose: 1,000 mls Insulin Human Lispro (Humalog) 0 units SC .MILD SLIDING SCALE PRN PRN Reason: Mild Correctional Scale Last Admin: 05/29/17 12:40 Dose: 2 unit Metoprolol Tartrate (Lopressor) 25 mg PO BID [facility] Last Admin: 05/29/17 08:47 Dose: 25 mg Miscellaneous Medication (Pharmacy To Dose) 1 each PO PRN PRN PRN Reason: . Ondansetron HCl (Zofran Odt) 4 mg PO Q6H PRN PRN Reason: Nausea/Vomiting Ondansetron HCl (Zofran) 4 mg IVP Q6H PRN PRN Reason: Nausea/Vomiting Sodium Chloride (Flush - Normal Saline) 10 ml IVF Q12HR [facility] Last Admin: 05/29/17 09:16 Dose: 10 ml Sodium Chloride (Flush - Normal Saline) 10 ml IVF PRN PRN PRN Reason: Saline Flush Warfarin Sodium (Coumadin) 5 mg PO 1700 [facility] Last Admin: 05/28/17 17:47 Dose: 5 mg
[2017-05-29] MEDS: Warfarin Sodium 5 MG TAB PO SCH (18:02)
[2017-05-29] MEDS: Heparin 25,000 units/D5W 500 ML IV SCH (18:03)
[2017-05-30 06:01] LABS: Anion Gap 10 mmol/L (10-20); BUN (Urea Nitrogen) 14 mg/dL (8.4-25.7); Calc. Creatinine Clearance 0 mL/min (70-130); Calcium 8.9 mg/dL (7.8-10.44); Carbon Dioxide 22 mmol/L (23-31); Chloride 107 mmol/L (98-107); Estimated GFR-MDRD 55
[2017-05-30 06:06] LABS: #Eosinphils 0.1 thou/uL (0.0-0.7); #Lymphocytes 1.8 thou/uL (1.20-3.40); #Monocytes 0.5 thou/uL (0.11-0.59); #Neutrophils 3.3 thou/uL (1.40-6.50); %Basophils 0.3 % (0.0-1.0); %Eosinophils 1.7 % (0.0-10.0); %Lymphocytes 30.7 % (21.0-51.0); %Monocytes 8.9 % (0.0-10.0); Mean Platelet Volume 7.7 fL (7.4-10.4); White Blood Cell (WBC) Count 5.7 thou/uL (4.8-10.8)
[2017-05-30 06:16] LABS: Prothrombin Time 21.6 SEC (12.0-14.7)
[2017-05-30 07:11] LABS: PTT 130.3 SEC (22.9-36.1)
[2017-05-30] MEDS: Docusate 100 MG CAP PO SCH ×2 (08:55→21:38)
[2017-05-30] MEDS: Metoprolol Tartrate 25 MG TAB PO SCH ×2 (08:56→21:41)
[2017-05-30] MEDS: Famotidine 20 MG TAB PO SCH ×2 (08:56→20:49)
[2017-05-30] MEDS: Sodium Chloride 0.9% 1,000 ML IV SCH ×3 (08:59→20:54)
--- NOTE | 2017-05-30 10:48 | PRG ---
DATE OF SERVICE: 05/30/2017 SUBJECTIVE: Mr. Avalos is doing well today. No chest pain or pressure. He feels well. PHYSICAL EXAMINATION: VITAL SIGNS: Blood pressure 126/72, pulse was 48 in sinus. LUNGS: Clear. CARDIAC: Normal S1 and normal S2. ABDOMEN: Soft and nontender. ASSESSMENT: 1. Intracavitary thrombus as outlined above. The INR is increased to 1.8, still subtherapeutic. 2. Bradycardia. 3. Renal function has improved. PLAN: 1. We will discontinue heparin. 2. Give a single dose of Lovenox. 3. Likely to be released home tomorrow. 4. Beta rojelio dose was held today and we will reduce to 12.5 mg twice a day.
--- NOTE | 2017-05-30 12:49 | PDOC.PN ---
- Subjective Encounter Start Date: 05/30/17 Encounter Start Time: 08:40 Pt seen for followup re; LV thrombus. Denies chest pain, shortness of breath, fever or chills. - Objective Resuscitation Status: Resuscitation Status FULL:Full Resuscitation MAR Reviewed: Yes Vital Signs & Weight: Vital Signs (12 hours) Temp Pulse Resp BP Pulse Ox 05/30/17 04:00 98.5 F 48 L 18 126/72 100 Weight Admit Weight 211 lb 10.3 oz Weight 7.319 oz I&O: 05/29/17 05/30/17 05/31/17 06:59 06:59 06:59 Intake Total 2650 1927 Output Total 1950 1900 Balance 700 27 Result Diagrams: 05/30/17 05:05 05/30/17 05:05 Additional Labs: Accuchecks 05/30/17 05/30/17 05/29/17 11:27 06:21 21:09 POC Glucose 235 H 217 H 251 H 05/29/17 17:27 POC Glucose 188 H EKG Reviewed by me: Yes (Tele: sinus bradycardia) Phys Exam - Physical Examination Constitutional: NAD HEENT: moist MMs, oral pharynx no lesions Neck: supple Respiratory: clear to auscultation bilateral Cardiovascular: RRR Gastrointestinal: soft, non-tender, positive bowel sounds Musculoskeletal: pulses present Neurological: moves all 4 limbs Psychiatric: normal affect Skin: no rash Dx/Plan (1) Left ventricular thrombus Code(s): [id number] - Status: Acute (2) Renal infarct Code(s): N28.0 - ISCHEMIA AND INFARCTION OF KIDNEY Status: Acute Comment: creatinine normalized with IV fluids and heparin (3) Diabetes mellitus type 2 in obese Code(s): E11.69 - TYPE 2 DIABETES MELLITUS WITH OTHER SPECIFIED COMPLICATION; E66.9 - OBESITY, UNSPECIFIED Status: Chronic (4) Hypertension Code(s): I10 - ESSENTIAL (PRIMARY) HYPERTENSION Status: Chronic - Plan PT/OT, out of bed/ambulate, DVT proph w/lovenox * . INR 1.8 today, continue warfarin. Metoprolol dose decreased from tomorrow. Monitor vital signs, titrate antihypertensives as needed. Likely home 1-2 days. Review of Systems - Review of Systems Respiratory: negative: Cough, Dry, Shortness of Breath, Hemoptysis, SOB with Excertion, Pleuritic Pain, Sputum, Wheezing Cardiovascular: negative: Chest Pain, Palpitations, Orthopnea, Paroxysmal Noc. Dyspnea, Edema, Light Headedness - Medications/Allergies Allergies/Adverse Reactions: Allergies Allergy/AdvReac Type Severity Reaction Status Date / Time No Known Allergies Allergy Verified 05/25/17 17:24 Medications: Current Medications Acetaminophen (Tylenol) 650 mg PO Q4H PRN PRN Reason: Headache/Fever or Pain Aspirin (Aspirin Chewable) 81 mg PO DAILY [facility] Last Admin: 05/30/17 08:55 Dose: 81 mg Bisacodyl (Dulcolax) 10 mg PO DAILYPRN PRN PRN Reason: Constipation Dextrose/Water (Dextrose 50%) 25 gm SLOW IVP PRN PRN PRN Reason: Hypoglycemia Docusate Sodium (Colace) 100 mg PO BID [facility] Last Admin: 05/30/17 08:55 Dose: 100 mg Famotidine (Pepcid) 20 mg PO BID [facility] Last Admin: 05/30/17 08:56 Dose: 20 mg Glucagon (Glucagon) 1 mg IM PRN PRN PRN Reason: Hypoglycemia Heparin Sodium (Porcine) (Heparin 1,000 Units/Ml (10 Ml)) 0 units SLOW IVP [facility] Last Admin: 05/26/17 08:07 Dose: 2,868 unit Heparin Sodium/Dextrose (Heparin 25,000 Units/D5w 500 Ml) 500 mls @ 0 mls/hr IV INF [facility]; As Directed PRN Reason: Protocol Last Admin: 05/29/17 18:03 Dose: 500 mls Dextrose/Water (D5w) 1,000 mls @ 0 mls/hr IV .Q0M PRN; As Directed PRN Reason: Hypoglycemia Sodium Chloride (Normal Saline 0.9%) 1,000 mls @ 100 mls/hr IV .Q10H [facility] Last Admin: 05/30/17 08:59 Dose: 1,000 mls Insulin Human Lispro (Humalog) 0 units SC .MILD SLIDING SCALE PRN PRN Reason: Mild Correctional Scale Last Admin: 05/29/17 18:01 Dose: 2 unit Metoprolol Tartrate (Lopressor) 12.5 mg PO BID [facility] Miscellaneous Medication (Pharmacy To Dose) 1 each PO PRN PRN PRN Reason: . Ondansetron HCl (Zofran Odt) 4 mg PO Q6H PRN PRN Reason: Nausea/Vomiting Ondansetron HCl (Zofran) 4 mg IVP Q6H PRN PRN Reason: Nausea/Vomiting Sodium Chloride (Flush - Normal Saline) 10 ml IVF Q12HR [facility] Last Admin: 05/30/17 09:00 Dose: Not Given Sodium Chloride (Flush - Normal Saline) 10 ml IVF PRN PRN PRN Reason: Saline Flush Warfarin Sodium (Coumadin) 5 mg PO 1700 [facility]
--- NOTE | 2017-05-30 13:13 | PRG ---
DATE OF SERVICE: 05/30/2017 SERVICE: Renal Medicine. DATE OF SERVICE: Mr. Avalos is a 66-year-old white male who was admitted for left renal infarct second katie to anabolic phenomenon. He was also noted to have acute kidney injury with a creatinine of 1.7 a nd he was given volume repletion. This morning, he denies any chest pain or shortness of breath. We are awaiting for his INR to be the rapeutic. OBJECTIVE: VITAL SIGNS: Blood pressure 126/72, heart rate 48, respiratory rate 18, temperature 98.5 and pulse o x 100%. GENERAL: Noted to be awake, ambulatory and comfortable, not in distress. SKIN: Adequate turgor. HEENT: Pinkish conjunctivae, anicteric sclerae. NECK: No neck mass, no carotid bruits, no JVD. CHEST: No deformities. LUNGS: Clear breath sounds. No wheezing, no crackles. HEART: Normal sinus rhythm. No murmur, no gallops, no rubs. ABDOMEN: Globular, soft and nontender. EXTREMITIES: No edema. MEDICATIONS: Medications of 05/30/2017 was reviewed. LABORATORY DATA: Laboratories of 05/30/2017, white count 5.7 and hemoglobin 13.6. Sodium 135, potas sium 4.3, chloride 107, carbon dioxide 22, BUN 14, creatinine 1.3. On 05/29/2017, BUN 15 and creatinine 1.48. On 05/28/2017, BUN 17 and creatinine 1.77. ASSESSMENT AND PLAN: 1. Acute kidney injury - hemodynamically mediated renal dysfunction. Patient's renal function is no w within normal. They consider discontinuing IV fluid. Hold off any diuretics or SARITA inhibitors for the moment. 2. Left renal infarct - embolic phenomenon. Awaiting for therapeutic INR. He is nearing therapeuti c INR. As the matter of fact, it is now 1.8. 3. Antithrombotic panel testing is still pending. Overall, I agree with current management.
[2017-05-30] MEDS: HumaLOG 300 UNITS/3 ML VIAL SC PRN (13:28)
[2017-05-30] MEDS: Heparin 10,000 UNITS/ 10 ML VIAL SLOW IVP SCH (16:56)
[2017-05-30] MEDS: Warfarin Sodium 5 MG TAB PO SCH (16:57)
[2017-05-30] MEDS ORDERED: Warfarin Sodium 7.5 MG TAB PO SCH (17:00)
[2017-05-30] MEDS ORDERED: HumaLOG 300 UNITS/3 ML VIAL SC PRN (17:27)
[2017-05-30] MEDS: Heparin 25,000 units/D5W 500 ML IV SCH (17:54)
[2017-05-30 23:17] LABS: PTT 133.3 SEC (22.9-36.1)
[2017-05-31 05:31] LABS: #Eosinphils 0.1 thou/uL (0.0-0.7); #Lymphocytes 1.7 thou/uL (1.20-3.40); #Monocytes 0.5 thou/uL (0.11-0.59); #Neutrophils 3.2 thou/uL (1.40-6.50); %Basophils 0.7 % (0.0-1.0); %Eosinophils 2.3 % (0.0-10.0); %Lymphocytes 30.4 % (21.0-51.0); %Monocytes 8.3 % (0.0-10.0); Hematocrit 46.7 % (42.0-52.0); Mean Platelet Volume 7.9 fL (7.4-10.4); Red Blood Cell (RBC) Count 4.81 mill/uL (4.70-6.10); White Blood Cell (WBC) Count 5.4 thou/uL (4.8-10.8)
[2017-05-31 05:35] LABS: Prothrombin Time 21.9 SEC (12.0-14.7)
[2017-05-31 05:49] LABS: Anion Gap 13 mmol/L (10-20); BUN (Urea Nitrogen) 15 mg/dL (8.4-25.7); Calc. Creatinine Clearance 73 mL/min (70-130); Calcium 8.8 mg/dL (7.8-10.44); Carbon Dioxide 18 mmol/L (23-31); Chloride 109 mmol/L (98-107); Estimated GFR-MDRD 55
[2017-05-31] MEDS: Sodium Chloride 0.9% 1,000 ML IV SCH ×2 (06:50→16:18)
[2017-05-31] MEDS ORDERED: Warfarin Sodium 5 MG TAB PO SCH (08:15)
[2017-05-31] MEDS ORDERED: Warfarin Sodium 2.5 MG TAB PO SCH (08:30)
[2017-05-31] MEDS: Heparin 10,000 UNITS/ 10 ML VIAL SLOW IVP SCH (09:55)
[2017-05-31] MEDS: Docusate 100 MG CAP PO SCH ×2 (10:09→20:50)
[2017-05-31] MEDS: Famotidine 20 MG TAB PO SCH ×2 (10:09→20:50)
[2017-05-31] MEDS: Metoprolol Tartrate 25 MG TAB PO SCH ×2 (10:10→20:50)
[2017-05-31] MEDS: HumaLOG 300 UNITS/3 ML VIAL SC PRN ×2 (14:20→18:26)
[2017-05-31 15:40] LABS: PTT 130.4 SEC (22.9-36.1)
[2017-05-31] MEDS: Warfarin Sodium 5 MG TAB PO SCH (16:19)
--- NOTE | 2017-05-31 16:26 | PDOC.PN ---
- Subjective Encounter Start Date: 05/31/17 Encounter Start Time: 08:40 Pt seen for followup re; LV thrombus. denies chest pain, shortness of breath, fevers or chills. - Objective Resuscitation Status: Resuscitation Status FULL:Full Resuscitation Vital Signs & Weight: Vital Signs (12 hours) Temp Pulse Resp BP Pulse Ox 05/31/17 15:20 98.5 F 51 L 16 119/64 99 05/31/17 11:30 98.1 F 50 L 16 146/78 H 97 Weight Admit Weight 211 lb 10.3 oz Weight 206 lb 3.2 oz I&O: 05/30/17 05/31/17 06/01/17 06:59 06:59 06:59 Intake Total 1927 4290 Output Total 1900 1675 Balance 27 2615 Result Diagrams: 05/31/17 05:16 05/31/17 05:16 Additional Labs: Accuchecks 05/31/17 05/31/17 05/30/17 11:13 06:21 20:37 POC Glucose 219 H 180 H 207 H 05/30/17 17:09 POC Glucose 135 H EKG Reviewed by me: Yes (Tele: NSR) Phys Exam - Physical Examination Constitutional: NAD HEENT: moist MMs Neck: supple Respiratory: clear to auscultation bilateral Cardiovascular: RRR Gastrointestinal: soft Neurological: moves all 4 limbs Psychiatric: normal affect Skin: no rash Dx/Plan (1) Left ventricular thrombus Code(s): [id number] - Status: Acute (2) Renal infarct Code(s): N28.0 - ISCHEMIA AND INFARCTION OF KIDNEY Status: Acute Comment: creatinine normalized with IV fluids and heparin (3) Diabetes mellitus type 2 in obese Code(s): E11.69 - TYPE 2 DIABETES MELLITUS WITH OTHER SPECIFIED COMPLICATION; E66.9 - OBESITY, UNSPECIFIED Status: Chronic (4) Hypertension Code(s): I10 - ESSENTIAL (PRIMARY) HYPERTENSION Status: Chronic - Plan PT/OT, out of bed/ambulate * . INR 1.9 today. Pt ambulating well. Continue warfarin. Review of Systems - Review of Systems Respiratory: negative: Cough, Dry, Shortness of Breath, Hemoptysis, SOB with Excertion, Pleuritic Pain, Sputum, Wheezing Cardiovascular: negative: Chest Pain, Palpitations, Orthopnea, Paroxysmal Noc. Dyspnea, Edema, Light Headedness - Medications/Allergies Allergies/Adverse Reactions: Allergies Allergy/AdvReac Type Severity Reaction Status Date / Time No Known Allergies Allergy Verified 05/25/17 17:24 Medications: Current Medications Acetaminophen (Tylenol) 650 mg PO Q4H PRN PRN Reason: Headache/Fever or Pain Aspirin (Aspirin Chewable) 81 mg PO DAILY [facility] Last Admin: 05/31/17 10:10 Dose: 81 mg Bisacodyl (Dulcolax) 10 mg PO DAILYPRN PRN PRN Reason: Constipation Dextrose/Water (Dextrose 50%) 25 gm SLOW IVP PRN PRN PRN Reason: Hypoglycemia Docusate Sodium (Colace) 100 mg PO BID [facility] Last Admin: 05/31/17 10:09 Dose: Not Given Famotidine (Pepcid) 20 mg PO BID [facility] Last Admin: 05/31/17 10:09 Dose: 20 mg Glucagon (Glucagon) 1 mg IM PRN PRN PRN Reason: Hypoglycemia Heparin Sodium (Porcine) (Heparin 1,000 Units/Ml (10 Ml)) 0 units SLOW IVP WILLCALL [facility] Last Admin: 05/31/17 09:55 Dose: 2,868 unit Heparin Sodium/Dextrose (Heparin 25,000 Units/D5w 500 Ml) 500 mls @ 0 mls/hr IV INF CAROL; As Directed PRN Reason: Protocol Last Admin: 05/30/17 17:54 Dose: 500 mls Dextrose/Water (D5w) 1,000 mls @ 0 mls/hr IV .Q0M PRN; As Directed PRN Reason: Hypoglycemia Sodium Chloride (Normal Saline 0.9%) 1,000 mls @ 100 mls/hr IV .Q10H [facility] Last Admin: 05/31/17 16:18 Dose: 1,000 mls Insulin Human Lispro (Humalog) 0 units SC .MILD SLIDING SCALE PRN PRN Reason: Mild Correctional Scale Last Admin: 05/31/17 14:20 Dose: 4 unit Insulin Human Lispro (Humalog) 0 units SC .BEDTIME SLIDING SC PRN; Protocol PRN Reason: BEDTIME SLIDING SCALE Last Admin: 05/30/17 21:02 Dose: 2 unit Metoprolol Tartrate (Lopressor) 12.5 mg PO BID [facility] Last Admin: 05/31/17 10:10 Dose: 12.5 mg Miscellaneous Medication (Pharmacy To Dose) 1 each PO PRN PRN PRN Reason: . Ondansetron HCl (Zofran Odt) 4 mg PO Q6H PRN PRN Reason: Nausea/Vomiting Ondansetron HCl (Zofran) 4 mg IVP Q6H PRN PRN Reason: Nausea/Vomiting Sodium Chloride (Flush - Normal Saline) 10 ml IVF Q12HR [facility] Last Admin: 05/31/17 16:24 Dose: Not Given Sodium Chloride (Flush - Normal Saline) 10 ml IVF PRN PRN PRN Reason: Saline Flush Last Admin: 05/30/17 16:57 Dose: 10 ml Warfarin Sodium (Coumadin) 5 mg PO 1700 CAROL Stop: 05/31/17 18:00 Last Admin: 05/31/17 16:19 Dose: 5 mg Warfarin Sodium (Coumadin) 7.5 mg PO 1700 CAROL
[2017-06-01] MEDS: Sodium Chloride 0.9% 1,000 ML IV SCH ×2 (02:00→12:45)
[2017-06-01] MEDS: Heparin 25,000 units/D5W 500 ML IV SCH (02:01)
[2017-06-01 02:51] LABS: #Basophils 0.1 thou/uL (0.0-0.2); #Eosinphils 0.2 thou/uL (0.0-0.7); #Lymphocytes 2.3 thou/uL (1.20-3.40); #Monocytes 0.6 thou/uL (0.11-0.59); #Neutrophils 4.3 thou/uL (1.40-6.50); %Basophils 0.8 % (0.0-1.0); %Eosinophils 2.4 % (0.0-10.0); %Monocytes 8.3 % (0.0-10.0); Hematocrit 39.5 % (42.0-52.0); Mean Platelet Volume 7.3 fL (7.4-10.4); Red Blood Cell (RBC) Count 4.11 mill/uL (4.70-6.10); White Blood Cell (WBC) Count 7.5 thou/uL (4.8-10.8)
[2017-06-01 02:57] LABS: Prothrombin Time 24.7 SEC (12.0-14.7)
[2017-06-01 02:58] LABS: PTT 56.8 SEC (22.9-36.1)
[2017-06-01 03:14] LABS: Anion Gap 12 mmol/L (10-20); BUN (Urea Nitrogen) 18 mg/dL (8.4-25.7); Calc. Creatinine Clearance 55 mL/min (70-130); Calcium 8.8 mg/dL (7.8-10.44); Carbon Dioxide 24 mmol/L (23-31); Chloride 107 mmol/L (98-107); Estimated GFR-MDRD 40
[2017-06-01] MEDS: Heparin 10,000 UNITS/ 10 ML VIAL SLOW IVP SCH (03:16)
[2017-06-01 06:16] VITALS: BMI 28.3
[2017-06-01] MEDS: Famotidine 20 MG TAB PO SCH (09:48)
[2017-06-01] MEDS: Docusate 100 MG CAP PO SCH (09:48)
[2017-06-01] MEDS: HumaLOG 300 UNITS/3 ML VIAL SC PRN ×2 (09:57→17:08)
--- NOTE | 2017-06-01 11:27 | PRG ---
DATE OF SERVICE: 06/01/2017 SERVICE: Renal Medicine. SUBJECTIVE: The patient has no new complaints. The plan is to discharge him today due to a therapeu tic INR of 2.2. I did note his creatinine is 1.7 from 1.3. He voices no complaints. He did voices no chest pain or shortness of breath. OBJECTIVE: VITAL SIGNS: Blood pressure 147/74, heart rate 46, respiratory rate 18, temperature 96.7 and pulse o x 95%. GENERAL: Awake, alert and comfortable. SKIN: Adequate turgor. HEENT: Pinkish conjunctivae, anicteric sclerae. NECK: No neck mass, no carotid bruits, no JVD. LUNGS: Clear breath sounds. No wheezing, no crackles. HEART: Bradycardic. No murmur, no gallops, no rubs. ABDOMEN: Globular, soft and nontender. No masses. EXTREMITIES: Shows no edema, no deformities. MEDICATIONS: Medications of 06/01/2017 reviewed. LABORATORY DATA: Laboratories of 06/01/2017 reviewed with a BUN of 18, creatinine 1.73, potassium 4. 7 and hemoglobin 12.9. ASSESSMENT AND PLAN: 1. Bradycardia. Cardiology following. Metoprolol placed on hold. 2. Chronic renal failure - patient is fluctuating creatinine. The high creatinine may be a reflecti on of the recent left renal infarct. My plan is simply to observe this. No indication for any dialy tic intervention. I had a long discussion with the patient regarding followup and management of his kidney problem. Agree with planned discharge. He will call my office for followup appointment.
[2017-06-01 15:55] VITALS: BP 173/79; TEMP 97.5
[2017-06-01] MEDS ORDERED: Warfarin Sodium 7.5 MG TAB PO SCH (17:00)
--- NOTE | 2017-06-02 00:17 | DIS ---
PRIMARY CARE PHYSICIAN: Dr. Jose Carlos Hoyos in [place]. DATE OF ADMISSION: 05/25/2017 DATE OF DISCHARGE: 06/01/2017 DISCHARGE DIAGNOSES: 1. Left ventricular thrombus. 2. Renal infarct. CONDITION OF PATIENT AT THE TIME OF DISCHARGE: Stable. I assessed Mr. Avalos on the day of discharge. He denies any chest pain or shortness of breath. Vital signs are stable. S1 and S2 are heard, reg ular. Lungs are clear to auscultation bilaterally. DISCHARGE MEDICATIONS: Aspirin 81 mg daily, Invokana 100 mg daily, Amaryl 4 mg 2 times a day, losart an 50 mg daily, metoprolol dose decreased to 12.5 mg daily, Protonix 40 mg daily, warfarin 7.5 mg kimber[place] ly. HOSPITAL COURSE: Mr. Avalos is a pleasant 66-year-old gentleman who was admitted to [facility] on 05/25/2017 for left ventricular thrombus. He initially had a CT scan because of a bdominal discomfort. The CT scan showed a left ventricular thrombus as well as renal infarct. He wa s seen by Cardiology and Nephrology services. His renal function fluctuated during this hospitalizat ion. He was started on warfarin with heparin drip. On 06/01, he has a therapeutic INR of 2.2. He i s being discharged home in a stable condition. He had bradycardia during this hospitalization. His metoprolol dose was decreased to 12.5 mg daily. Many thanks for allowing me to participate in your patient's care. Please feel free to contact me wi th any questions or concerns. DISCHARGE DESTINATION: Home. TOTAL AMOUNT OF TIME SPENT COORDINATING THIS DISCHARGE: 32 minutes. ADDENDUM: Because of ongoing bradycardia, Mr. Avalos's metoprolol has been discontinued. He has been advised not to take any metoprolol at home.
[2017-06-02] MEDS ORDERED: Metoprolol Tartrate 25 MG TAB PO SCH (09:00)
[2017-06-02 14:19] LABS: Activated Protein C Resistance 2.9 ratio (.)
--- NOTE | 2017-07-05 13:53 | EKG ---
Test Reason : Blood Pressure : / mmHG Vent. Rate : 065 BPM Atrial Rate : 065 BPM P-R Int : 152 ms QRS Dur : 082 ms QT Int : 430 ms P-R-T Axes : 038 -20 042 degrees QTc Int : 447 ms Normal sinus rhythm Low voltage QRS Inferior infarct , age undetermined Possible Anterolateral infarct , age undetermined Abnormal ECG Confirmed by MONICA MITCHELL, ELIE ([id number]), assistant film editor CED VALDEZ ([id number]) on 07/05/2017 1:52:14 PM Referred By: Confirmed By:ELIE ANDERSON MD
== END 2017-06-01 19:57 | disposition home or self-care (01) | DRG 699 ==
LOC: ERS 13:21 → IMCU/EMU 15:03 → 2NO 05-29 13:57
PROVIDERS: ADMIT Emergency Medicine; ATTEND Emergency Medicine
DX: N28.0 Ischemia and infarction of kidney (principal); I24.0 Acute coronary thrombosis not resulting in myocardial infarction; E11.22 Type 2 diabetes mellitus with diabetic chronic kidney disease; K50.90 Crohn's disease, unspecified, without complications; N18.3 Chronic kidney disease, stage 3 (moderate); R00.1 Bradycardia, unspecified; I25.10 Atherosclerotic heart disease of native coronary artery without angina pectoris; E86.0 Dehydration; Z95.5 Presence of coronary angioplasty implant and graft; I25.2 Old myocardial infarction; E78.5 Hyperlipidemia, unspecified; I12.9 Hypertensive chronic kidney disease with stage 1 through stage 4 chronic kidney disease, or unspecified chronic kidney disease; E66.9 Obesity, unspecified; Z68.28 Body mass index [BMI] 28.0-28.9, adult
CPT/HCPCS: 36415; 36416; 71010; 80048; 80053; 80061; 81001; 81240; 82553; 83090; 83690; 83880; 84484; 85025; 85240; 85300; 85303; 85305; 85307; 85379; 85598; 85610; 85730; 90471; 90682; 93005; 93306; 93970; 96361; 96365; A4216; G0008; J1644; Q2036

== ENCOUNTER 2017-06-02 09:36 | Inpatient (IN) | payer MEDICARE, BC ==
[2017-06-02 10:12] LABS: #Lymphocytes 1.3 thou/uL (1.20-3.40); #Monocytes 0.8 thou/uL (0.11-0.59); #Neutrophils 10.3 thou/uL (1.40-6.50); %Basophils 0.2 % (0.0-1.0); %Eosinophils 0.3 % (0.0-10.0); %Lymphocytes 10.2 % (21.0-51.0); %Monocytes 6.4 % (0.0-10.0); Hematocrit 44.6 % (42.0-52.0); Mean Platelet Volume 7.5 fL (7.4-10.4); Red Blood Cell (RBC) Count 4.73 mill/uL (4.70-6.10); White Blood Cell (WBC) Count 12.4 thou/uL (4.8-10.8)
[2017-06-02 10:34] LABS: ALT (SGPT) 40 U/L (8-55); AST (SGOT) 24 U/L (5-34); Alkaline Phosphatase 67 U/L (40-150); Anion Gap 17 mmol/L (10-20); BUN (Urea Nitrogen) 14 mg/dL (8.4-25.7); Bilirubin, Total 0.9 mg/dL (0.2-1.2); Calc. Creatinine Clearance 0 mL/min (70-130); Calcium 9.6 mg/dL (7.8-10.44); Carbon Dioxide 20 mmol/L (23-31); Chloride 101 mmol/L (98-107); Estimated GFR-MDRD 55; Globulin 2.8 g/dL (2.4-3.5); Protein, Total 6.6 g/dL (5.8-8.1)
[2017-06-02 10:37] LABS: Troponin I Less than 0.010 ng/mL (< 0.028)
[2017-06-02 10:57] LABS: PTT 44.7 SEC (22.9-36.1); Prothrombin Time 24.3 SEC (12.0-14.7)
[2017-06-02] MEDS ORDERED: Ondansetron HCl/PF 4 MG/2 ML Vial ONE (11:12)
[2017-06-02] MEDS ORDERED: Morphine 4 MG/ML VIAL ONE ×2 (11:12→15:44)
--- NOTE | 2017-06-02 12:16 | CT ---
CT PULMONARY ANGIOGRAM OF THE CHEST INCLUDING 3D RENDERING: History: 66-year-old male with chest pain and known left ventricular thrombus. FINDINGS: No significant CT evidence for acute pulmonary embolism. No evidence of aortic aneurysm or dissection . No pleural effusion or pericardial effusion. Small hiatal hernia. There does appear to be some hype rtrophic changes of the left ventricle. IMPRESSION: No CT evidence for acute pulmonary embolism. No evidence of aortic aneurysm or dissection. Small hiat al hernia. POS: [facility]
--- NOTE | 2017-06-02 12:28 | CT ---
ABDOMEN AND PELVIS CT SCAN WITH IV CONTRAST: HISTORY: A 66-year-old male with abdominal pain and recent left renal infarct. FINDINGS: The lung bases are clear. The liver, gallbladder, pancreas, and adrenal glands are unremarkable. Th ere are multiple fairly well circumscribed abnormal low attenuation changes within the spleen, concer [place] for multiple splenic infarcts. There is a large area of somewhat heterogeneous peripheral abnor mal decreased attenuation within the posterolateral aspect of the left kidney, evidence for left elvis l infarct. 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 No evidence for acute obstruction. Nonobstructing renal calculi would not be able to be excluded because of the denser co ntrast within the renal collecting system. Small, fat-containing umbilical hernia. No evidence of l arge or small bowel obstruction. Normal appearing appendix. IMPRESSION: 1. Evidence for multiple splenic infarcts and a fairly large infarct involving the left kidney later ally and posteriorly. 2. Ptotic. low lying, malrotated right kidney. 3. No evidence for acute genitourinary obstruction. 4. Normal appearing appendix. 5. No abscess, adenopathy, or abnormal fluid collection. 6. Hiatal hernia. POS: [facility]
[2017-06-02] MEDS ORDERED: Mag-Al 1200 mg/1200 mg/30 ML UDCUP ONE (16:21)
[2017-06-02] MEDS ORDERED: Lidocaine Viscous Sol 2% 15 ml UD Cup ONE (16:21)
[2017-06-02] MEDS ORDERED: ISOVUE-370 76%-LOCM 1 ML ONE (16:26)
[2017-06-02 17:43] VITALS: BMI 27.6
[2017-06-02] MEDS ORDERED: Acetaminophen 325 MG TAB PO PRN ×2 (17:45→18:53)
[2017-06-02] MEDS ORDERED: Ondansetron HCl/PF 4 MG/2 ML Vial IVP PRN ×2 (17:45→18:53)
[2017-06-02] MEDS ORDERED: Ondansetron ODT 4 MG TAB SL PRN (17:45)
[2017-06-02] MEDS ORDERED: HYDROcodone/Acetaminophen 5/325 mg Tablet PO PRN ×2 (18:53)
[2017-06-02] MEDS ORDERED: Ondansetron ODT 4 MG TAB PO PRN (18:53)
[2017-06-02] MEDS ORDERED: hydrALAZINE 20 MG/ML VIAL SLOW IVP PRN (18:53)
[2017-06-02] MEDS ORDERED: Dextrose 5% in Water 1,000 ML IV PRN (18:53)
[2017-06-02] MEDS ORDERED: Zolpidem Tartrate 5 MG TAB PO PRN (18:53)
[2017-06-02] MEDS ORDERED: Dextrose 50% Abboject 50 ML SYRINGE SLOW IVP PRN (18:53)
[2017-06-02] MEDS ORDERED: Warfarin Sodium 7.5 MG TAB PO SCH (19:30)
--- NOTE | 2017-06-02 19:58 | HP ---
PRIMARY CARE PHYSICIAN: Dr. Jose Carlos Rand. CHIEF COMPLAINT: Left-sided pain. HISTORY OF PRESENT ILLNESS: Mr. Avalos is a pleasant 66-year-old gentleman who was actually just disch arged yesterday. He was hospitalized for a left ventricular thrombus, which was brought to medical a ttention due to left kidney infarct. At that time, he had had a CT scan done by Dr. Barajas, which show ed the infarct in the kidney. He was instructed to go to the emergency room. He was admitted and ev aluated by Cardiology. It was felt that the best option was to treat him medically and he was placed on Coumadin, and once his INR was therapeutic, he was discharged home. The patient says that as he was being discharged, he says that he felt a little pain on the left side that kind move around, but then it went away, then on the way home, he had an episode of vomiting. Once he got home, he felt ok ay and then the following morning, he began having a severe pain in the left lower side, which radiat ed to the belly button. He said that the pain was so bad that he could hardly move. He was very con cerned about this, and as a result, he came to the ER for evaluation. In the ER, a CT scan of the ab domen and pelvis was done and showed evidence for multiple splenic infarcts and a fairly large infarc t in the left kidney, normal appearing appendix and no abscess and there was evidence of a hiatal her jen. His INR on today was 2.1 and he is being admitted for consultation with Cardiology and Vascular Surgery as to how to proceed. REVIEW OF SYSTEMS: CONSTITUTIONAL: There have been no fevers, no chills, no night sweats, no weight loss. HEENT: He denies any headaches, no dizziness, no visual changes, no sore throat, rhinorrhea, neck pa in, no adenopathy. PULMONARY: No hemoptysis, no cough, no wheezing. CARDIOVASCULAR: He denies any chest pain, no shortness of breath, no PND, no orthopnea. GASTROINTESTINAL: No abdominal pain, no nausea, no vomiting, no change in bowels. There was no carlita na and no bright red blood per rectum. GENITOURINARY: No urinary frequency, hematuria, no hesitancy. MUSCULOSKELETAL: He denies any muscle pains, weakness or joint pains. NEUROLOGIC: No focal weakness, numbness, no seizures. PSYCHIATRIC: No symptoms of anxiety or depression. SKIN AND INTEGUMENT: No skin changes. No rash. PAST MEDICAL HISTORY: Significant for hypertension, diabetes mellitus, coronary artery disease, Croh n disease and recently diagnosed left renal infarct as well as a left ventricular thrombus. PAST SURGICAL HISTORY: He has had a right elbow fracture surgery, rectal fistula surgery and tonsill ectomy. ALLERGIES: No known drug allergies. SOCIAL HISTORY: He is a nonsmoker, nondrinker. He is retired. He is . CURRENT MEDICATIONS: These are the same as on discharge and include aspirin 81 mg daily, Invokana 10 0 mg daily, Amaryl 4 mg twice a day, losartan 50 mg daily, metoprolol 12.5 mg daily, Protonix 40 mg d aily, and Coumadin 7.5 mg daily. FAMILY HISTORY: Father had hypertension and of a heart attack at age 53 and mom had an unusual form of cancer in the blood vessels in her scalp. PHYSICAL EXAMINATION: GENERAL: He is alert and oriented. He appears to be in no acute distress. VITAL SIGNS: Blood pressure was 137/98, heart rate is 102, respiratory rate is 15, temperature is 97 .7. HEENT: Pupils are equal, round, and reactive. Extraocular muscles are intact. His sclerae are anic teric. Throat, no erythema, no exudates. NECK: No adenopathy, no bruits. LUNGS: Clear. No wheezing, no rales. CARDIOVASCULAR: He has a normal S1, S2. I do not appreciate an S3 or S4. No murmurs or clicks, no rubs. ABDOMEN: Soft. He has got some mild left mid to upper quadrant tenderness. There is no rebound, no guarding. Positive bowel sounds. EXTREMITIES: There is no clubbing, cyanosis, no edema. He has got no discoloration of his lower ext remities or any of his toes. Pulses are palpable. NEUROLOGICAL: Nonfocal. LABORATORY RESULTS: INR is 2.1. White blood cell count 12.4, hemoglobin 14.8, hematocrit is 44.6, p latelet count is 194. Sodium 134, potassium 4.2, chloride is 101, CO2 is 20, BUN of 14, creatinine 1 .3, and glucose is 271. ASSESSMENT AND PLAN: This is a 66-year-old gentleman who was recently diagnosed with a left ventricular thrombosis who was placed on oral anticoagulation. His INR when he was discharged was therapeutic and is currently the rapeutic now. However, despite having a therapeutic INR, the patient developed a splenic thrombosis, likely the origin of which is from the left ventricular thrombus, which is already present. He will be placed in observation. We will consult Cardiology as well as CV Surgery to see what can be done with regards to the infarct, is possible that he may require higher dose of Coumadin and maybe have a higher goal INR such as 2.5 to 3. It is unclear whether he needs to be on heparin during this time period of adjusting his medications. and also we will continue to monitor his INR. There is hospital stay diabetes mellitus. We will continue his home medications as well as sliding scale insulin and his history of coronary artery disease appears to be stable without any need to make any medication a djustments.
[2017-06-02] MEDS ORDERED: Acetaminophen 500 MG TAB PO PRN (20:14)
[2017-06-02] MEDS ORDERED: Sodium Chloride 0.9% 10 ML ONE (20:20)
[2017-06-02] MEDS: diphenhydrAMINE 25 MG CAP PO PRN (20:34)
[2017-06-03 05:39] LABS: Hematocrit 43.4 % (42.0-52.0)
[2017-06-03 05:41] LABS: #Eosinphils 0.1 thou/uL (0.0-0.7); #Lymphocytes 1.2 thou/uL (1.20-3.40); #Neutrophils 7.8 thou/uL (1.40-6.50); %Basophils 0.4 % (0.0-1.0); %Eosinophils 0.7 % (0.0-10.0); %Lymphocytes 11.8 % (21.0-51.0); %Monocytes 9.9 % (0.0-10.0); Hematocrit 43.2 % (42.0-52.0); Red Blood Cell (RBC) Count 4.53 mill/uL (4.70-6.10); White Blood Cell (WBC) Count 10.1 thou/uL (4.8-10.8)
[2017-06-03 05:46] LABS: Prothrombin Time 29.8 SEC (12.0-14.7)
[2017-06-03 06:06] LABS: Anion Gap 13 mmol/L (10-20); BUN (Urea Nitrogen) 15 mg/dL (8.4-25.7); Calc. Creatinine Clearance 72 mL/min (70-130); Calcium 9.3 mg/dL (7.8-10.44); Carbon Dioxide 23 mmol/L (23-31); Chloride 102 mmol/L (98-107); Estimated GFR-MDRD 56
[2017-06-03] MEDS ORDERED: Non-Formulary Item 1 EACH (Canagliflozin [Invokana] 1 TAB) PO SCH (09:00)
[2017-06-03] MEDS: Aspirin 81 mg Enteric Coated Tablet PO SCH (09:13)
[2017-06-03] MEDS: Glimepiride 4 MG TAB PO SCH ×2 (09:13→17:08)
[2017-06-03] MEDS: Losartan Potassium 25 MG TAB PO SCH (09:13)
[2017-06-03] MEDS: HumaLOG 300 UNITS/3 ML VIAL SC PRN ×3 (09:18→17:10)
--- NOTE | 2017-06-03 10:43 | PDOC.PN ---
- Subjective Encounter Start Date: 06/03/17 Encounter Start Time: 10:42 Mr. Avalos was seen today in follow-up of Spenic Infarct, and recent Left Ventricular Thrombus. He says the pain in his left side is improving. He denies any new symptoms. - Objective Resuscitation Status: Resuscitation Status FULL:Full Resuscitation MAR Reviewed: Yes Vital Signs & Weight: Vital Signs (12 hours) Temp Pulse Resp BP Pulse Ox 06/03/17 09:08 99.1 F 99 18 117/73 99 06/03/17 04:00 98.7 F 94 18 114/73 97 06/03/17 03:50 97 06/02/17 23:47 98.6 F 88 18 127/77 94 L Weight Weight 202 lb 11.2 oz I&O: 06/02/17 06/03/17 06/04/17 06:59 06:59 06:59 Intake Total 430 Output Total 1125 Balance -695 Result Diagrams: 06/03/17 05:23 06/03/17 05:23 Additional Labs: Accuchecks 06/03/17 06/02/17 05:34 20:24 POC Glucose 223 H 235 H Phys Exam - Physical Examination HEENT: PERRLA Respiratory: no wheezing, no rales, no rhonchi, clear to auscultation bilateral Cardiovascular: RRR, no significant murmur Gastrointestinal: soft, non-tender, positive bowel sounds Musculoskeletal: no edema Dx/Plan (1) Splenic infarct Code(s): D73.5 - INFARCTION OF SPLEEN Status: Acute (2) Crohn disease Code(s): K50.90 - CROHN'S DISEASE, UNSPECIFIED, WITHOUT COMPLICATIONS Status: Acute (3) Left ventricular thrombus Code(s): [id number] - Status: Acute (4) Renal infarct Code(s): N28.0 - ISCHEMIA AND INFARCTION OF KIDNEY Status: Acute Comment: creatinine normalized with IV fluids and heparin (5) Diabetes mellitus type 2 in obese Code(s): E11.69 - TYPE 2 DIABETES MELLITUS WITH OTHER SPECIFIED COMPLICATION; E66.9 - OBESITY, UNSPECIFIED Status: Chronic (6) Hypertension Code(s): I10 - ESSENTIAL (PRIMARY) HYPERTENSION Status: Chronic - Plan * Left Ventricular Infarction- discussed with Dr. Mauricio The results of his coagulation profile has returned which was sent during his last admission * He has an Antithrombin III deficiency- he recommends adjusting his coumadin to a target INR of 2.5 to 3.0 * There is no need for any further work-up at this time * His INR was 2.7 today- will continue the current dose of coumadin, and see where is INR is tomorrow. Hopefully home tomorrow * .
--- NOTE | 2017-06-03 12:50 | CON ---
DATE OF CONSULTATION: 06/03/2017 REASON FOR CONSULTATION: Splenic infarct. HISTORY OF PRESENT ILLNESS: Mr. Avalos is a pleasant 66-year-old gentleman who is a patient of Dr. Jackie Yang. Mr. Avalos recently presented with renal infarct from thrombus at the apex of the left v entricle. He was discharged on Coumadin. He was discharged yesterday and returned with flank pain. He was diagnosed with a splenic infarct. PAST MEDICAL HISTORY: Please see Dr. Wu's full consultation for details. PHYSICAL EXAMINATION: GENERAL: Patient is a pleasant male who is in no acute distress. The patient appears his stated age. VITAL SIGNS: Blood pressure 117/78, pulse 99 and temperature 99.1. NEUROLOGIC: The patient is alert and oriented x3 with no focal neurologic deficits. HEENT: Sclerae without icterus. Mouth has moist mucous membranes with normal pallor. NECK: No JVD. Carotid upstroke brisk. No bruits bilaterally. LUNGS: Clear to auscultation with unlabored respirations. BACK: No scoliosis or kyphosis. CARDIAC: Regular rate and rhythm with normal S1 and S2. No S3 or S4 noted. No significant rubs, murmurs, thrills, or gallops noted throughout the precordium. PMI is not displa ashly. There is no parasternal heave. ABDOMEN: Soft, nontender, nondistended. No peritoneal signs present. No hepatosplenomegaly. No abnormal striae. EXTREMITIES: 2+ femoral and 2+ dorsalis pedis pulses. No cyanosis, clubbing, or edema. SKIN: No gross abnormalities. IMAGING DATA: Echo with Doppler from 05/25/2017 was reviewed and did reveal significant hypokinesis noted to the apex with the apical thrombus. IMPRESSION: 1. Splenic infarct. 2. Renal infarct. 3. Left ventricular thrombus. RECOMMENDATIONS: Mr. Avalos presented with an INR today of 2.1. CV Surgery has been consulted, but op tions are likely limited. No data is suggesting oral anticoagulation therapy is the benefit in this situation. We would recommend keeping INR between 2.5 and 3.5 knowing this increased risk of bleedin g and stroke in addition to thrombus. I did discuss this with Mr. Avalos. He is not interested in any type of surgical intervention and at this point, I am not sure if it is indicated. We will discuss with CV Surgery.
--- NOTE | 2017-06-03 13:09 | CON ---
DATE OF CONSULTATION: 06/03/2017 SERVICE: Renal Medicine. HISTOREY OF PRESENT ILLNESS: Mr. Avalos is a 66-year-old white male who was seen by the renal service for left renal infarct. He has been anticoagulated. His last INR was therapeutic. He was discharge d the day prior to his second admission. However, he developed again left flank pain. Of interest, during the repeat imaging of the abdomen via CT scan, he had multiple splenic infarct. It did showed left renal infarct, which was not new. He was seen by the renal service several days ago and at renetta t time, he presented with findings of a left renal infarct. However, his symptoms has been chronic. He has had several days of left flank pain and the GI has evaluated the patient with the finding of a left renal infarct. At that time, we felt that he was no longer a candidate for any thrombolytic o r surgical intervention due to the fact the window has been disregarding for that procedure. He was simply anticoagulated. An antithrombotic panel was done and the results at that time showed normal c ardiolipin IgM antibody. In addition, the D-dimer protein S activity and antithrombin III has all be en done, but the results are still not available. Of interest, the patient has been therapeutic with Coumadin for the last several days. He is now here for further evaluation. We are seeing this jolly ent for the left renal infarct. However, of interest, renal function remains stable at the most rece nt creatinine now of 1.29. At one time at that hospitalization, his creatinine fluctuate and was giv en IV hydration. The patient voices no new complaints. His left flank pain, left upper quadrant shira n is actually much improved compared to yesterday. He is currently on Coumadin. Awaiting further in put from surgery. PHYSICAL EXAMINAITON: VITAL SIGNS: Blood pressure is 117/73, heart rate 97, respiratory rate 18, temperature 99.1, O2 sats 95%. GENERAL: Awake, alert, comfortable, not in distress. SKIN: Adequate turgor. HEENT: Pinkish conjunctivae, anicteric sclerae. NECK: No neck mass, no carotid bruits, no JVD. CHEST: No deformities. LUNGS: Clear breath sounds. No wheezing, no crackles. HEART: Normal sinus rhythm. No murmur, no gallops or rubs. ABDOMEN: Globular, soft, nontender, no masses. EXTREMITIES: No edema. MEDICATIONS: Of 06/03/2017 was reviewed. LABORATORY DATA: Of 06/03/2017, sodium 133, potassium 4.6, chloride 102, carbon dioxide 23, BUN 15, creatinine 1.29, glucose 244, calcium is 9.3, white count 10.1, hemoglobin 14.2, INR 2.7. ASSESSMENT AND PLAN: 1. Left renal infarct/splenic infarct, on anticoagulation. INR is said to be therapeutic. Awaiting surgical input. I no surgical intervention, consider a Hematology consult with this patient. 2. Acute kidney injury - this has resolved. Creatinine is now noted at 1.29. If the renal function should further worsen in the near future, we could consider adjusting losartan of holding it off. Overall, agree with current management.
--- NOTE | 2017-06-03 14:33 | CON ---
DATE OF CONSULTATION: 06/03/2017 HISTORY OF PRESENT ILLNESS: Mr. Avalos is a 66-year-old gentleman who was admitted 1 week ago. He was admitted with a left renal infarct and it was felt to be secondary to a LV thrombus. The patient has history of Crohn's disease, who came to see Dr. Barajas with abdominal pain. He had an outpatient CT scan performed, which showed an apical filling defect in the left ventricle along with left renal infarct. He was admitted. He underwent hypercoagulable workup, which has shown antithrom bin III deficiency. He was placed on Coumadin with an INR of 2.2. One week later, he was asymptomat ic and discharged home. His creatinine at the time of discharge was 1.7. His current creatinine is 1.29. The patient was out of the hospital for less than 8 hours and returned to the emergency depart ment with more left flank pain. A repeat CT scan of the abdomen showed left splenic infarcts in sue tion to his left renal infarct. At the patient's previous admission, he had an echocardiogram perfor [facility] which showed the left apical thrombus measuring 1 x 2 cm. It was not free floating or mobile. T here is no evidence of ventricular aneurysm. There is no evidence of myocardium or ventricular infar ct. His ejection fraction was normal. Currently, the patient is resting comfortably in bed and asymptomatic. His most recent INR is 2.1 on 7.5 mg of Coumadin per day. I have been asked to see him for surgical options for his ventricular t hrombus. PAST MEDICAL HISTORY: 1. Crohn's disease. 2. 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 4. Hypertension. 5. Diabetes mellitus. 6. Coronary artery disease. PAST SURGICAL HISTORY: 1. ORIF of his left elbow. 2. Rectal fistula surgery. 3. Tonsillectomy. ALLERGIES: None. CURRENT MEDICATIONS: 1. Aspirin 81 mg daily. 2. Invokana 100 mg daily. 3. Amaryl 4 mg b.i.d. 4. Losartan 50 mg daily. 5. Metoprolol 12.5 mg daily. 6. Protonix 40 mg daily. 7. Coumadin 7.5 mg daily. SOCIAL HISTORY: He does not use tobacco or alcohol. REVIEW OF SYSTEMS: Ten point review of systems is performed and is negative except as above. PHYSICAL EXAMINATION: GENERAL: This is a well-developed, well-nourished, nontoxic appearing gentleman resting comfortably in bed. VITAL SIGNS: Temperature is 99.1, pulse is 99 and regular, blood pressure 117/73. NECK: Supple, without bruit. CHEST: Clear bilaterally. HEART: Rhythm is regular, without murmur. ABDOMEN: Soft and nontender, without mass. EXTREMITIES: No edema. ASSESSMENT AND PLAN: This is a 66-year-old gentleman with antithrombin III deficiency and left ventr icular thrombus, I would push his INR up to 2.5 to 3. I have no indication for surgical thrombectomy at this time.
[2017-06-03] MEDS ORDERED: Warfarin Sodium 7.5 MG TAB PO SCH (17:00)
[2017-06-03] MEDS: diphenhydrAMINE 25 MG CAP PO PRN (20:56)
[2017-06-04 05:48] LABS: Prothrombin Time 33.3 SEC (12.0-14.7)
[2017-06-04] MEDS: Losartan Potassium 25 MG TAB PO SCH (09:13)
[2017-06-04] MEDS: Glimepiride 4 MG TAB PO SCH (09:13)
[2017-06-04] MEDS: Aspirin 81 mg Enteric Coated Tablet PO SCH (09:13)
--- NOTE | 2017-06-04 12:00 | PDOC.PN ---
- Subjective Encounter Start Date: 06/04/17 Encounter Start Time: 11:55 Mr. Avalos was seen today in follow-up of Splenic Infarct. He is feeling much better. he says the pain on his left side has resolved. - Objective Resuscitation Status: Resuscitation Status FULL:Full Resuscitation MAR Reviewed: Yes Vital Signs & Weight: Vital Signs (12 hours) Temp Pulse Resp BP Pulse Ox 06/04/17 09:15 98.1 F 100 20 122/83 97 06/04/17 08:00 98.1 F 100 20 97 06/04/17 04:00 99.2 F 95 20 98/64 Weight Weight 202 lb 11.2 oz I&O: 06/03/17 06/04/17 06/05/17 06:59 06:59 06:59 Intake Total 430 1800 Output Total 1125 420 Balance -695 1380 Result Diagrams: 06/03/17 05:23 06/03/17 05:23 Additional Labs: Accuchecks 06/04/17 06/04/17 06/03/17 11:07 05:46 20:13 POC Glucose 210 H 182 H 170 H 06/03/17 06/03/17 17:11 11:44 POC Glucose 224 H 227 H Phys Exam - Physical Examination HEENT: PERRLA Respiratory: no wheezing, no rales, no rhonchi, clear to auscultation bilateral Cardiovascular: RRR, no significant murmur Gastrointestinal: soft, non-tender, positive bowel sounds Musculoskeletal: no edema Dx/Plan (1) Splenic infarct Code(s): D73.5 - INFARCTION OF SPLEEN Status: Acute (2) Crohn disease Code(s): K50.90 - CROHN'S DISEASE, UNSPECIFIED, WITHOUT COMPLICATIONS Status: Acute (3) Left ventricular thrombus Code(s): TON4707 - Status: Acute (4) Renal infarct Code(s): N28.0 - ISCHEMIA AND INFARCTION OF KIDNEY Status: Acute Comment: creatinine normalized with IV fluids and heparin (5) Diabetes mellitus type 2 in obese Code(s): E11.69 - TYPE 2 DIABETES MELLITUS WITH OTHER SPECIFIED COMPLICATION; E66.9 - OBESITY, UNSPECIFIED Status: Chronic (6) Hypertension Code(s): I10 - ESSENTIAL (PRIMARY) HYPERTENSION Status: Chronic - Plan * Splenic Infarct- improved * INR today is 3.1 * He is stable for discharge home.
--- NOTE | 2017-06-04 12:02 | PRG ---
DATE OF SERVICE: 06/04/2017 SUBJECTIVE: Mr. Avalos was admitted due to flank pain. He was found to have ischemic infarct. The an ti-thrombosis panel has been ordered and he has mild antithrombin III deficiency. He is being antico agulated. I am seeing this patient for his acute kidney injury. His last creatinine was 1.29. Eliza jade note he is on losartan. He voices no new complaints today except for occasional left flank pain. The patient denies any chest pain, shortness of breath. PHYSICAL EXAMINATION: VITAL SIGNS: Blood pressure 122/83, heart rate 100, respiratory 23, temperature 98.1, pulse ox 97%. GENERAL: Noted to be awake, alert, comfortable, not in overt distress. SKIN: Adequate turgor. HEENT: He has pinkish conjunctivae, anicteric sclerae. NECK: No neck mass, no carotid bruits, no JVD. CHEST: No deformities. LUNGS: Clear breath sounds. No wheezing, no crackles. HEART: Normal sinus rhythm. No murmur, no gallops or rubs. ABDOMEN: Globular, soft, nontender, no masses. EXTREMITIES: No edema, no deformities. MEDICATIONS: 06/04/2017 - Reviewed. LABORATORY: 06/03/2017 - Hemoglobin 14.2. 06/04/2017 - INR was 3.1. 06/03/2017 - BUN 15, creatinine 1.29. ASSESSMENT AND PLAN: 1. Anti-thrombin III deficiency/left renal/splenic infarct - currently on anticoagulation and Coumad in. Coumadin is being adjusted as needed. 2. Status post acute kidney injury last creatinine was within normal. Recheck base met again tomorrow. Overall, I agree with current management. Continue current dose of losartan. The case discussed at length with the patient and his .
[2017-06-04 12:04] VITALS: BP 127/79; TEMP 98.7
--- NOTE | 2017-06-04 12:40 | DIS ---
DATE OF ADMISSION: 06/02/2017 DATE OF DISCHARGE: 06/04/2017 PRIMARY CARE PHYSICIAN: Dr. Jose Carlos Rand. DISCHARGE DISPOSITION: Home. PRIMARY DISCHARGE DIAGNOSES: 1. Splenic infarct. 2. History of infarct to the left kidney. 3. Ventricular thrombosis. 4. Probable antithrombin 3 deficiency. 5. Hypertension. 6. Diabetes mellitus, type 2. 7. Coronary artery disease. 8. Crohn's disease. DISCHARGE MEDICATIONS: Include Coumadin. The patient's dose was adjusted to 7.5 mg on Wednesday, , Wednesday, Wednesday, and Wednesday and 5 mg on Wednesday and , with the exception of today, the patient is to take 5 mg. Protonix 40 mg daily, losartan 50 mg daily, Amaryl 4 mg twice a day, Invok karla 100 mg daily, and aspirin 81 mg a day. CODE STATUS: FULL CODE. ALLERGIES: No known drug allergies. HOSPITAL COURSE: Mr. Avalos is a pleasant 66-year-old gentleman that was recently diagnosed with left ventricular thrombus. The etiology at that time was unknown; however, lab work has recently come [place] in which the patient had a slightly low antithrombin III level. He was placed on Coumadin and disc harged home. After being home for only one day, the patient started having severe pain in the left f lank. He was evaluated in the ER and found to have new splenic infarcts. On the time of admission, the patient's INR was 2.1. He was evaluated by Vascular Surgery as well as Cardiology and it was fel t that his INR goal should be higher between 2.5 and 3.5. Otherwise, there is no surgical interventi on needed. At the time of discharge, the patient's INR was 3.1. His INR level had nicholas steadily fro m 2.1-2.7 and then 3.1 while he was on 7.5 mg dose. For this reason, we will lower the dose for 1 y to 5 mg at discharge and then back to 7.5 mg and he is to follow up [facility] on to have his PT/INR drawn. He is to have the level sent to Dr. Yang and order for the blood wor k was given. The patient was instructed to keep his diet consistent over the next few days and also into the future as well. The patient is subsequently being discharged home to have close followup wi sam Yang within the next 5-7 days and also at the [facility] on Wednesday.
== END 2017-06-04 14:21 | disposition home or self-care (01) | DRG 815 ==
LOC: ERS 09:36 → 2NO 17:13
PROVIDERS: ADMIT Internal Medicine; ATTEND Internal Medicine
DX: D73.5 Infarction of spleen (principal); D68.59 Other primary thrombophilia; K50.90 Crohn's disease, unspecified, without complications; I51.3 Intracardiac thrombosis, not elsewhere classified; N28.0 Ischemia and infarction of kidney; I10 Essential (primary) hypertension; E11.9 Type 2 diabetes mellitus without complications; I25.10 Atherosclerotic heart disease of native coronary artery without angina pectoris; Z79.01 Long term (current) use of anticoagulants
CPT/HCPCS: 36415; 36416; 71275; 74177; 80048; 80053; 82553; 84484; 85014; 85018; 85025; 85049; 85610; 85730; 93005; 96361; 96374; 96375; 96376; A4216; J2270; J2405

== ENCOUNTER 2021-12-21 17:31 | Inpatient (IN) | payer MEDICARE, BC ==
[2021-12-21] MEDS ORDERED: Aspirin Chewable 81 MG TAB ONE (17:56)
[2021-12-21 18:20] LABS: #Eosinphils 0.2 thou/uL (0.0-0.7); #Lymphocytes 2.2 thou/uL (1.20-3.40); #Monocytes 0.7 thou/uL (0.11-0.59); #Neutrophils 4.2 thou/uL (1.40-6.50); %Basophils 0.6 % (0.0-1.0); %Eosinophils 2.3 % (0.0-10.0); %Monocytes 9.8 % (0.0-10.0); %Neutrophils 57.3 % (42.0-75.0); Hemoglobin 15.4 g/dL (14.0-18.0); Mean Corpuscular HGB CONC 33.6 g/dL (32.0-36.0); Mean Corpuscular Hemoglobin 31.6 pg (27.0-31.0); Mean Corpuscular Volume 94.1 fL (78.0-98.0); Mean Platelet Volume 7.4 fL (7.4-10.4); Platelet Count 229 thou/uL (130-400); RBC Distribution Width 12.3 % (11.5-14.5); Red Blood Cell (RBC) Count 4.86 mill/uL (4.70-6.10); White Blood Cell (WBC) Count 7.4 thou/uL (4.8-10.8)
[2021-12-21 18:40] LABS: ALT (SGPT) 15 U/L (8-55); AST (SGOT) 19 U/L (5-34); Alkaline Phosphatase 58 U/L (40-110); Anion Gap 14 mmol/L (10-20); BUN (Urea Nitrogen) 26 mg/dL (8.4-25.7); Bilirubin, Total 0.5 mg/dL (0.2-1.2); Calc. Creatinine Clearance 0 mL/min (70-130); Calcium 8.9 mg/dL (7.8-10.44); Carbon Dioxide 23 mmol/L (23-31); Chloride 106 mmol/L (98-107); Globulin 2.6 g/dL (2.4-3.5); Glucose 170 mg/dL (83-110); Lipase 46 U/L (8-78); Magnesium 2.3 mg/dL (1.6-2.6); Potassium 4.7 mmol/L (3.5-5.1); Protein, Total 6.6 g/dL (5.8-8.1); Sodium 138 mmol/L (136-145)
[2021-12-21 19:01] LABS: CKMB 3.6 ng/mL (0-6.6)
[2021-12-21] MEDS ORDERED: DOPamine 400 MG/D5W 250 ML 250 ML ONE (19:10)
[2021-12-21] MEDS ORDERED: Ondansetron PF 4 MG/2 ML Vial ONE ×2 (19:12→19:39)
[2021-12-21] MEDS ORDERED: Atropine Sulfate 1 mg/10 ml Syringe ONE (19:14)
[2021-12-21] MEDS ORDERED: Tenecteplase 50 MG - STEMI KIT ONE (19:14)
[2021-12-21] MEDS ORDERED: Fentanyl 100 MCG/2 ML VIAL ONE (19:18)
[2021-12-21] MEDS ORDERED: Adenosine 6 MG/2 ML VIAL ONE ×2 (19:27→21:06)
[2021-12-21] MEDS ORDERED: Nitroglycerin 100MG/250ML BOT 0 ML ONE (19:27)
[2021-12-21] MEDS ORDERED: Heparin 10,000 UNITS/ 10 ML VIAL ONE (19:27)
[2021-12-21] MEDS ORDERED: Lidocaine 1% (PF) 30 ML VIAL ONE (19:28)
[2021-12-21] MEDS ORDERED: Nitroglycerin 100MG/250ML BOT 250 ML ONE ×2 (19:28→21:06)
[2021-12-21] MEDS ORDERED: HYDROmorphone 0.5 MG/0.5 ML SYRINGE ONE (20:19)
[2021-12-21] MEDS ORDERED: Verapamil 5 MG/2 ML VIAL ONE (21:06)
[2021-12-21] MEDS ORDERED: Clopidogrel Bisulfate 300 MG TAB ONE (21:59)
[2021-12-21] MEDS ORDERED: Milk Of Magnesia 30 ML UDCUP PO PRN (22:02)
[2021-12-21] MEDS ORDERED: Sodium Chloride 0.9% 1,000 ML IV SCH (22:15)
[2021-12-21 23:04] VITALS: BMI 32.5
[2021-12-21 23:33] LABS: CKMB 20.6 ng/mL (0-6.6)
[2021-12-22 01:05] LABS: SARS-CoV-2 NAA Rapid Test Not Detected (NotDetected)
[2021-12-22 04:46] LABS: #Lymphocytes 1.7 thou/uL (1.20-3.40); #Monocytes 0.8 thou/uL (0.11-0.59); #Neutrophils 9.2 thou/uL (1.40-6.50); %Basophils 0.3 % (0.0-1.0); %Eosinophils 0.2 % (0.0-10.0); %Lymphocytes 14.2 % (21.0-51.0); %Monocytes 6.8 % (0.0-10.0); %Neutrophils 78.5 % (42.0-75.0); Hemoglobin 13.5 g/dL (14.0-18.0); Mean Corpuscular HGB CONC 32.1 g/dL (32.0-36.0); Mean Corpuscular Hemoglobin 30.4 pg (27.0-31.0); Mean Corpuscular Volume 94.6 fL (78.0-98.0); Mean Platelet Volume 7.8 fL (7.4-10.4); Platelet Count 215 thou/uL (130-400); RBC Distribution Width 12.4 % (11.5-14.5); Red Blood Cell (RBC) Count 4.44 mill/uL (4.70-6.10); White Blood Cell (WBC) Count 11.7 thou/uL (4.8-10.8)
[2021-12-22 05:07] LABS: ALT (SGPT) 27 U/L (8-55); AST (SGOT) 77 U/L (5-34); Albumin 3.7 g/dL (3.4-4.8); Alkaline Phosphatase 54 U/L (40-110); Anion Gap 12 mmol/L (10-20); BUN (Urea Nitrogen) 24 mg/dL (8.4-25.7); Bilirubin, Total 0.7 mg/dL (0.2-1.2); Calc. Creatinine Clearance 64 mL/min (70-130); Calcium 8.4 mg/dL (7.8-10.44); Carbon Dioxide 20 mmol/L (23-31); Chloride 112 mmol/L (98-107); Globulin 2.2 g/dL (2.4-3.5); Glucose 141 mg/dL (83-110); Potassium 4.7 mmol/L (3.5-5.1); Protein, Total 5.9 g/dL (5.8-8.1); Sodium 139 mmol/L (136-145)
[2021-12-22 07:04] LABS: CKMB 99.3 ng/mL (0-6.6)
[2021-12-22 08:44] LABS: Troponin I 28.668 ng/mL (< 0.028)
[2021-12-22] MEDS: Clopidogrel Bisulfate 75 MG TAB PO SCH (09:52)
[2021-12-22] MEDS: Aspirin Chewable 81 MG TAB PO SCH (09:52)
[2021-12-22 18:19] LABS: INR-International Normal Ratio 1.5; Prothrombin Time 18.3 sec (12.0-14.7)
[2021-12-22] MEDS ORDERED: Atorvastatin Calcium 40 MG TAB PO SCH (21:00)
[2021-12-23 03:43] LABS: #Basophils 0.1 thou/uL (0.0-0.2); #Eosinphils 0.1 thou/uL (0.0-0.7); #Lymphocytes 1.7 thou/uL (1.20-3.40); #Monocytes 0.9 thou/uL (0.11-0.59); #Neutrophils 6.5 thou/uL (1.40-6.50); %Basophils 0.6 % (0.0-1.0); %Eosinophils 1.2 % (0.0-10.0); %Lymphocytes 18.3 % (21.0-51.0); %Monocytes 10.1 % (0.0-10.0); %Neutrophils 69.8 % (42.0-75.0); Hemoglobin 14.3 g/dL (14.0-18.0); Mean Corpuscular HGB CONC 31.6 g/dL (32.0-36.0); Mean Corpuscular Hemoglobin 31.3 pg (27.0-31.0); Mean Corpuscular Volume 98.9 fL (78.0-98.0); Mean Platelet Volume 7.8 fL (7.4-10.4); Platelet Count 199 thou/uL (130-400); RBC Distribution Width 12.6 % (11.5-14.5); Red Blood Cell (RBC) Count 4.56 mill/uL (4.70-6.10); White Blood Cell (WBC) Count 9.3 thou/uL (4.8-10.8)
[2021-12-23 03:53] LABS: INR-International Normal Ratio 1.5; Prothrombin Time 18.5 sec (12.0-14.7)
[2021-12-23 04:01] LABS: Anion Gap 14 mmol/L (10-20); BUN (Urea Nitrogen) 20 mg/dL (8.4-25.7); Calc. Creatinine Clearance 74 mL/min (70-130); Calcium 8.7 mg/dL (7.8-10.44); Carbon Dioxide 17 mmol/L (23-31); Cardiac Risk 4.5 (Less than 4.5); Chloride 110 mmol/L (98-107); Cholesterol 135 mg/dl (< 200 Desired); Glucose 96 mg/dL (83-110); HDL Cholesterol 30 mg/dL (>60 Neg Risk); LDL Cholesterol, Calculated 77 mg/dL; Potassium 4.3 mmol/L (3.5-5.1); Sodium 137 mmol/L (136-145); Triglycerides 140 mg/dL (Less than 150)
[2021-12-23] MEDS: Ezetimibe 10 MG TAB PO SCH (08:41)
[2021-12-23] MEDS: Aspirin Chewable 81 MG TAB PO SCH (08:41)
[2021-12-23] MEDS: Clopidogrel Bisulfate 75 MG TAB PO SCH (08:41)
[2021-12-23] MEDS ORDERED: Pitavastatin Calcium 2 MG TAB PO SCH (09:00)
[2021-12-23] MEDS ORDERED: Loratadine 10 MG TAB PO SCH (13:45)
[2021-12-23] MEDS ORDERED: Warfarin Sodium 5 MG TAB PO SCH (17:00)
[2021-12-23] MEDS ORDERED: Dextrose 50% Abboject 50 ML SYRINGE SLOW IVP PRN (17:04)
[2021-12-23] MEDS ORDERED: Dextrose 5% in Water 1,000 ML IV PRN (17:04)
[2021-12-23] MEDS: Fluticasone Propionate Nasal Spray 16 gm Bottle NASAL SCH (20:27)
[2021-12-24 05:19] LABS: #Eosinphils 0.2 thou/uL (0.0-0.7); #Lymphocytes 1.6 thou/uL (1.20-3.40); #Neutrophils 5.1 thou/uL (1.40-6.50); %Basophils 0.4 % (0.0-1.0); %Eosinophils 2.7 % (0.0-10.0); %Lymphocytes 19.9 % (21.0-51.0); %Neutrophils 64.2 % (42.0-75.0); Hemoglobin 13.7 g/dL (14.0-18.0); Mean Corpuscular HGB CONC 33.2 g/dL (32.0-36.0); Mean Corpuscular Hemoglobin 31.5 pg (27.0-31.0); Mean Corpuscular Volume 94.9 fL (78.0-98.0); Mean Platelet Volume 7.7 fL (7.4-10.4); Platelet Count 195 thou/uL (130-400); RBC Distribution Width 12.3 % (11.5-14.5); Red Blood Cell (RBC) Count 4.34 mill/uL (4.70-6.10); White Blood Cell (WBC) Count 7.9 thou/uL (4.8-10.8)
[2021-12-24 05:25] LABS: INR-International Normal Ratio 1.4; Prothrombin Time 17.5 sec (12.0-14.7)
[2021-12-24 05:35] LABS: Anion Gap 11 mmol/L (10-20); BUN (Urea Nitrogen) 23 mg/dL (8.4-25.7); Calc. Creatinine Clearance 65 mL/min (70-130); Carbon Dioxide 22 mmol/L (23-31); Chloride 108 mmol/L (98-107); Glucose 108 mg/dL (83-110); Potassium 4.1 mmol/L (3.5-5.1); Sodium 137 mmol/L (136-145)
[2021-12-24] MEDS: PITAVASTATIN CALCIUM 4 MG PO SCH ×2 (09:02)
[2021-12-24] MEDS: Fluticasone Propionate Nasal Spray 16 gm Bottle NASAL SCH ×2 (09:02→21:27)
[2021-12-24] MEDS: Loratadine 10 MG TAB PO SCH (09:03)
[2021-12-24] MEDS: Aspirin Chewable 81 MG TAB PO SCH (09:03)
[2021-12-24] MEDS: Ezetimibe 10 MG TAB PO SCH (09:03)
[2021-12-24] MEDS: Clopidogrel Bisulfate 75 MG TAB PO SCH (09:03)
[2021-12-24] MEDS ORDERED: Communication Order-Pharmacy FS SCH (09:13)
[2021-12-24] MEDS ORDERED: Enoxaparin Sodium 30 MG/0.3 ML SYRINGE SC SCH (09:15)
[2021-12-24] MEDS ORDERED: Warfarin Sodium 5 MG TAB PO SCH (09:30)
[2021-12-24 09:45] LABS: Hemoglobin 13.4 g/dL (14.0-18.0); Platelet Count 181 thou/uL (130-400)
[2021-12-24] MEDS ORDERED: Enoxaparin Sodium 80 MG/0.8 ML SYRINGE SC SCH (21:00)
[2021-12-24] MEDS: Enoxaparin Sodium 120 MG/0.8 ML SYRINGE SC SCH (21:27)
[2021-12-25 05:08] LABS: #Eosinphils 0.2 thou/uL (0.0-0.7); #Lymphocytes 1.4 thou/uL (1.20-3.40); #Monocytes 0.8 thou/uL (0.11-0.59); %Basophils 0.4 % (0.0-1.0); %Eosinophils 2.2 % (0.0-10.0); %Lymphocytes 19.5 % (21.0-51.0); %Monocytes 10.8 % (0.0-10.0); %Neutrophils 67.1 % (42.0-75.0); Hemoglobin 13.9 g/dL (14.0-18.0); Mean Corpuscular HGB CONC 33.5 g/dL (32.0-36.0); Mean Corpuscular Hemoglobin 31.3 pg (27.0-31.0); Mean Corpuscular Volume 93.5 fL (78.0-98.0); Mean Platelet Volume 7.7 fL (7.4-10.4); Platelet Count 199 thou/uL (130-400); RBC Distribution Width 12.3 % (11.5-14.5); Red Blood Cell (RBC) Count 4.45 mill/uL (4.70-6.10); White Blood Cell (WBC) Count 7.4 thou/uL (4.8-10.8)
[2021-12-25 05:22] LABS: INR-International Normal Ratio 1.6; Prothrombin Time 19.3 sec (12.0-14.7)
[2021-12-25 05:26] LABS: Anion Gap 14 mmol/L (10-20); BUN (Urea Nitrogen) 24 mg/dL (8.4-25.7); Calc. Creatinine Clearance 57 mL/min (70-130); Calcium 8.9 mg/dL (7.8-10.44); Carbon Dioxide 19 mmol/L (23-31); Chloride 107 mmol/L (98-107); Glucose 252 mg/dL (83-110); Potassium 4.1 mmol/L (3.5-5.1); Sodium 136 mmol/L (136-145)
[2021-12-25] MEDS: HumaLOG 300 UNITS/3 ML VIAL SC PRN ×2 (06:31→11:19)
[2021-12-25] MEDS: Aspirin Chewable 81 MG TAB PO SCH (09:04)
[2021-12-25] MEDS: Ezetimibe 10 MG TAB PO SCH (09:04)
[2021-12-25] MEDS: Fluticasone Propionate Nasal Spray 16 gm Bottle NASAL SCH ×2 (09:04→20:08)
[2021-12-25] MEDS: Loratadine 10 MG TAB PO SCH (09:04)
[2021-12-25] MEDS: Clopidogrel Bisulfate 75 MG TAB PO SCH (09:04)
[2021-12-25] MEDS: PITAVASTATIN CALCIUM 4 MG PO SCH (09:09)
[2021-12-25] MEDS: Enoxaparin Sodium 120 MG/0.8 ML SYRINGE SC SCH ×2 (11:18→20:09)
[2021-12-25] MEDS: Warfarin Sodium 5 MG TAB PO SCH (16:50)
[2021-12-26 05:02] LABS: #Eosinphils 0.2 thou/uL (0.0-0.7); #Lymphocytes 1.6 thou/uL (1.20-3.40); #Monocytes 0.8 thou/uL (0.11-0.59); #Neutrophils 3.9 thou/uL (1.40-6.50); %Basophils 0.6 % (0.0-1.0); %Eosinophils 3.7 % (0.0-10.0); %Lymphocytes 24.9 % (21.0-51.0); %Monocytes 11.8 % (0.0-10.0); %Neutrophils 59.1 % (42.0-75.0); Hemoglobin 14.6 g/dL (14.0-18.0); Mean Corpuscular HGB CONC 33.4 g/dL (32.0-36.0); Mean Corpuscular Hemoglobin 31.7 pg (27.0-31.0); Mean Corpuscular Volume 95.1 fL (78.0-98.0); Mean Platelet Volume 8.3 fL (7.4-10.4); Platelet Count 200 thou/uL (130-400); RBC Distribution Width 12.3 % (11.5-14.5); Red Blood Cell (RBC) Count 4.59 mill/uL (4.70-6.10); White Blood Cell (WBC) Count 6.6 thou/uL (4.8-10.8)
[2021-12-26 05:14] LABS: INR-International Normal Ratio 1.7; Prothrombin Time 20.5 sec (12.0-14.7)
[2021-12-26 05:31] LABS: Anion Gap 13 mmol/L (10-20); BUN (Urea Nitrogen) 21 mg/dL (8.4-25.7); Calc. Creatinine Clearance 58 mL/min (70-130); Carbon Dioxide 22 mmol/L (23-31); Chloride 106 mmol/L (98-107); Glucose 152 mg/dL (83-110); Sodium 137 mmol/L (136-145)
[2021-12-26] MEDS: Enoxaparin Sodium 120 MG/0.8 ML SYRINGE SC SCH ×2 (08:03→21:03)
[2021-12-26] MEDS: Clopidogrel Bisulfate 75 MG TAB PO SCH (08:03)
[2021-12-26] MEDS: Fluticasone Propionate Nasal Spray 16 gm Bottle NASAL SCH ×2 (08:04→21:05)
[2021-12-26] MEDS: Ezetimibe 10 MG TAB PO SCH (08:04)
[2021-12-26] MEDS: Aspirin Chewable 81 MG TAB PO SCH (08:04)
[2021-12-26] MEDS: PITAVASTATIN CALCIUM 4 MG PO SCH (08:04)
[2021-12-26] MEDS: Loratadine 10 MG TAB PO SCH (08:04)
[2021-12-26] MEDS: HumaLOG 300 UNITS/3 ML VIAL SC PRN (11:36)
[2021-12-26] MEDS: Warfarin Sodium 5 MG TAB PO SCH (16:55)
[2021-12-26] MEDS ORDERED: Lantus 1000 UNITS/10 ML VIAL SC SCH (21:00)
[2021-12-26] MEDS ORDERED: Insulin Glargine 30 UNITS/0.3 ML VIAL SC SCH (21:00)
[2021-12-26] MEDS ORDERED: Atorvastatin Calcium 40 MG TAB PO SCH (21:00)
[2021-12-27 05:07] LABS: INR-International Normal Ratio 1.8; Prothrombin Time 20.8 sec (12.0-14.7)
[2021-12-27 05:15] LABS: Anion Gap 14 mmol/L (10-20); BUN (Urea Nitrogen) 21 mg/dL (8.4-25.7); Calc. Creatinine Clearance 60 mL/min (70-130); Carbon Dioxide 19 mmol/L (23-31); Chloride 107 mmol/L (98-107); Glucose 152 mg/dL (83-110); Sodium 136 mmol/L (136-145)
[2021-12-27 05:17] LABS: #Eosinphils 0.3 thou/uL (0.0-0.7); #Lymphocytes 1.8 thou/uL (1.20-3.40); #Monocytes 0.9 thou/uL (0.11-0.59); #Neutrophils 4.1 thou/uL (1.40-6.50); %Basophils 0.5 % (0.0-1.0); %Eosinophils 3.6 % (0.0-10.0); %Lymphocytes 25.1 % (21.0-51.0); %Monocytes 12.2 % (0.0-10.0); %Neutrophils 58.6 % (42.0-75.0); Hemoglobin 14.2 g/dL (14.0-18.0); Mean Corpuscular Volume 93.8 fL (78.0-98.0); Platelet Count 221 thou/uL (130-400); RBC Distribution Width 12.4 % (11.5-14.5); White Blood Cell (WBC) Count 7.1 thou/uL (4.8-10.8)
[2021-12-27] MEDS: Clopidogrel Bisulfate 75 MG TAB PO SCH (08:06)
[2021-12-27] MEDS: PITAVASTATIN CALCIUM 4 MG PO SCH (08:06)
[2021-12-27] MEDS: Loratadine 10 MG TAB PO SCH (08:06)
[2021-12-27] MEDS: Fluticasone Propionate Nasal Spray 16 gm Bottle NASAL SCH (08:06)
[2021-12-27] MEDS: Ezetimibe 10 MG TAB PO SCH (08:06)
[2021-12-27] MEDS: Aspirin Chewable 81 MG TAB PO SCH (08:06)
[2021-12-27] MEDS ORDERED: Warfarin Sodium 5 MG TAB PO SCH (08:15)
[2021-12-27 08:27] VITALS: BP 139/85; TEMP 98.2
[2021-12-27] MEDS ORDERED: Insulin Glargine 30 UNITS/0.3 ML VIAL SC SCH (09:00)
[2021-12-27] MEDS ORDERED: Enoxaparin Sodium 100 MG/ML SYRINGE SC SCH (09:00)
== END 2021-12-27 11:06 | disposition home or self-care (01) | DRG 247 ==
LOC: ERS 17:31 → CCU 21:05 → 2SW 12-23 12:21
PROVIDERS: ADMIT Internal Medicine Cardiovascular Disease; ATTEND Internal Medicine
PROC: 027035Z Dilation of Coronary Artery, One Artery with Two Drug-eluting Intraluminal Devices, Percutaneous Approach (ICD-10-PCS; principal; 2021-12-21)
PROC: B241ZZ3 Ultrasonography of Multiple Coronary Arteries, Intravascular (ICD-10-PCS; 2021-12-21)
PROC: 4A023N7 Measurement of Cardiac Sampling and Pressure, Left Heart, Percutaneous Approach (ICD-10-PCS; 2021-12-21)
PROC: B2111ZZ Fluoroscopy of Multiple Coronary Arteries using Low Osmolar Contrast (ICD-10-PCS; 2021-12-21)
PROC: B2151ZZ Fluoroscopy of Left Heart using Low Osmolar Contrast (ICD-10-PCS; 2021-12-21)
DX: I21.19 ST elevation (STEMI) myocardial infarction involving other coronary artery of inferior wall (principal); K50.90 Crohn's disease, unspecified, without complications; N28.0 Ischemia and infarction of kidney; D68.59 Other primary thrombophilia; I25.3 Aneurysm of heart; Z20.822 Contact with and (suspected) exposure to COVID-19; E11.22 Type 2 diabetes mellitus with diabetic chronic kidney disease; E78.5 Hyperlipidemia, unspecified; D73.5 Infarction of spleen; N18.9 Chronic kidney disease, unspecified; I12.9 Hypertensive chronic kidney disease with stage 1 through stage 4 chronic kidney disease, or unspecified chronic kidney disease; I25.10 Atherosclerotic heart disease of native coronary artery without angina pectoris; E78.00 Pure hypercholesterolemia, unspecified; I25.2 Old myocardial infarction; Z95.5 Presence of coronary angioplasty implant and graft; Z90.89 Acquired absence of other organs; Z98.890 Other specified postprocedural states; Z79.899 Other long term (current) drug therapy; Z79.84 Long term (current) use of oral hypoglycemic drugs; Z79.82 Long term (current) use of aspirin; Z86.718 Personal history of other venous thrombosis and embolism; Z82.49 Family history of ischemic heart disease and other diseases of the circulatory system; Z79.01 Long term (current) use of anticoagulants; Z79.4 Long term (current) use of insulin
CPT/HCPCS: 36415; 36416; 71045; 80048; 80053; 80061; 82553; 83690; 83735; 84484; 85025; 85347; 85610; 90471; 90732; 92941; 92978; 93005; 93010; 93306; 93798; 96365; 96366; 96368; 96375; C1753; C1769; C1874; C9606; G0009; J0153; J0461; J1170; J1265; J1644; J1650; J1815; J2001; J2405; J3010; J3101; J7050

== ENCOUNTER 2022-09-22 04:26 | Emergency (ER) | payer MEDICARE, BC ==
[2022-09-22] MEDS ORDERED: Ondansetron ODT 4 MG TAB ONE (04:42)
[2022-09-22 06:01] LABS: #Eosinphils 0.1 thou/uL (0.0-0.7); #Monocytes 0.6 thou/uL (0.11-0.59); #Neutrophils 4.3 thou/uL (1.40-6.50); %Basophils 0.2 % (0.0-1.0); %Eosinophils 1.7 % (0.0-10.0); %Lymphocytes 17.1 % (21.0-51.0); %Monocytes 9.4 % (0.0-10.0); %Neutrophils 71.6 % (42.0-75.0); Hemoglobin 11.8 g/dL (14.0-18.0); Mean Corpuscular HGB CONC 33.1 g/dL (32.0-36.0); Mean Corpuscular Hemoglobin 29.6 pg (27.0-31.0); Mean Corpuscular Volume 89.4 fl (78.0-98.0); Mean Platelet Volume 8.5 fL (7.4-10.4); Platelet Count 208 10x3/uL (130-400); RBC Distribution Width 14.3 % (11.5-14.5); Red Blood Cell (RBC) Count 3.99 mill/uL (4.70-6.10)
[2022-09-22] MEDS ORDERED: FENTANYL 50 MCG/ML 1 ML VIAL ONE (06:04)
[2022-09-22 06:12] LABS: INR-International Normal Ratio 1.6; PTT 28.5 sec (22.9-36.1); Prothrombin Time 19.9 sec (12.0-14.7)
[2022-09-22 06:25] LABS: ALT (SGPT) 13 U/L (8-55); AST (SGOT) 19 U/L (5-34); Albumin 3.8 g/dL (3.4-4.8); Alkaline Phosphatase 55 U/L (40-110); Anion Gap 12 mmol/L (10-20); BUN (Urea Nitrogen) 27 mg/dL (8.4-25.7); Bilirubin, Total 0.7 mg/dL (0.2-1.2); Calc. Creatinine Clearance 0 mL/min (70-130); Calcium 9.2 mg/dL (7.8-10.44); Carbon Dioxide 23 mmol/L (23-31); Chloride 106 mmol/L (98-107); Estimated GFR 40; Globulin 2.5 g/dL (2.4-3.5); Glucose 184 mg/dL (83-110); Lipase 31 U/L (8-78); Potassium 4.3 mmol/L (3.5-5.1); Protein, Total 6.3 g/dL (5.8-8.1); Sodium 137 mmol/L (136-145)
[2022-09-22 08:16] LABS: Bacteria/HPF None Seen HPF (None Seen); Bilirubin Negative (Negative); Blood, Urine 3+ (Negative); Clarity Clear (Clear); Glucose, Urine (Dipstick) 150 mg/dL (Negative); Ketone, Urine Trace mg/dL (Negative); Leukocyte Negative Leu/uL (Negative); Nitrite Negative (Negative); Protein, Urine (Dipstick) 20 mg/dL (Neg-Trace); RBC/HPF Greater than 50 HPF (0-3); Specific Gravity, Urine 1.021 (1.002-1.036); Squamous Epithelial None Seen HPF (0-3); Urobilinogen Normal mg/dL (Less than 2); WBC/HPF 0-3 HPF (0-3); pH, Urine 6.5 (5.0-9.0)
[2022-09-22] MEDS ORDERED: Iopamidol-370 76% 500 ML 1 ML ONE (11:29)
== END 2022-09-22 09:14 | disposition home or self-care (01) ==
LOC: ERS 04:26
DX: R10.9 Unspecified abdominal pain (principal); R79.1 Abnormal coagulation profile; E11.9 Type 2 diabetes mellitus without complications
CPT/HCPCS: 74177; 80053; 83605; 83690; 85025; 85610; 85730; J3010; 36415; 81003; 81015; 96374; Q0162; Q9967